=== PATIENT | female | born 1945 | race Caucasian/White ===

== ENCOUNTER 2017-06-03 23:42 | Inpatient (IN) | payer MEDICARE ==
[2017-06-04] MEDS ORDERED: Ondansetron HCl/PF 4 MG/2 ML Vial ONE (00:24)
[2017-06-04] MEDS ORDERED: cefTRIAXone\\ROCEPHIN 2 GM VIAL ONE (00:24)
[2017-06-04] MEDS ORDERED: Vancomycin HCl 1 GM in Premix Bag 1 BAG IVPB SCH (00:30)
[2017-06-04] MEDS ORDERED: GENTAMICIN SULFATE IVPB SCH (00:45)
[2017-06-04] MEDS ORDERED: SODIUM CHLORIDE 0.9% IVPB SCH (00:45)
[2017-06-04 00:46] LABS: #Eosinphils 0.1 thou/uL (0.0-0.7); #Lymphocytes 2.6 thou/uL (1.20-3.40); #Monocytes 0.7 thou/uL (0.11-0.59); #Neutrophils 11.2 thou/uL (1.40-6.50); %Basophils 0.2 % (0.0-1.0); %Eosinophils 0.4 % (0.0-10.0); %Lymphocytes 17.6 % (21.0-51.0); %Monocytes 4.6 % (0.0-10.0); Hematocrit 38.6 % (36.0-47.0); Mean Platelet Volume 8.9 fL (7.4-10.4); Red Blood Cell (RBC) Count 4.36 mill/uL (4.20-5.40); White Blood Cell (WBC) Count 14.6 thou/uL (4.8-10.8)
[2017-06-04 01:02] LABS: Lactic Acid - Sepsis 2.3 mmol/L (0.5-2.2)
[2017-06-04 01:13] LABS: Anion Gap 15 mmol/L (10-20); BUN (Urea Nitrogen) 19 mg/dL (9.8-20.1); Calc. Creatinine Clearance 0 mL/min (70-130); Calcium 9.2 mg/dL (7.8-10.44); Carbon Dioxide 20 mmol/L (23-31); Chloride 107 mmol/L (98-107); Estimated GFR-MDRD 72
[2017-06-04 01:52] LABS: Bilirubin Negative (Negative); Blood, Urine Negative (Negative); Glucose, Urine (Dipstick) Negative (Negative); Ketone, Urine Negative (Negative); Nitrite Negative (Negative); Protein, Urine (Dipstick) Negative (Neg-Trace); Urobilinogen 0.2 mg/dL (0.2-1.0)
[2017-06-04] MEDS ORDERED: Ondansetron HCl/PF 4 MG/2 ML Vial IVP PRN ×2 (02:10→02:56)
[2017-06-04] MEDS ORDERED: Sodium Chloride 0.9% 1,000 ML IV SCH (02:56)
[2017-06-04] MEDS ORDERED: Ondansetron ODT 4 MG TAB SL PRN (02:56)
[2017-06-04 03:16] VITALS: BMI 24.0
[2017-06-04] MEDS: Sodium Chloride 0.9% 1,000 ML IV SCH ×3 (03:49→16:19)
[2017-06-04 04:20] LABS: #Basophils 0.1 thou/uL (0.0-0.2); #Eosinphils 0.1 thou/uL (0.0-0.7); #Lymphocytes 2.7 thou/uL (1.20-3.40); #Monocytes 0.8 thou/uL (0.11-0.59); #Neutrophils 8.1 thou/uL (1.40-6.50); %Basophils 0.5 % (0.0-1.0); %Eosinophils 0.9 % (0.0-10.0); %Lymphocytes 22.9 % (21.0-51.0); Hematocrit 34.5 % (36.0-47.0); Mean Platelet Volume 8.3 fL (7.4-10.4); Red Blood Cell (RBC) Count 3.85 mill/uL (4.20-5.40); White Blood Cell (WBC) Count 11.8 thou/uL (4.8-10.8)
[2017-06-04 04:56] LABS: Anion Gap 12 mmol/L (10-20); BUN (Urea Nitrogen) 18 mg/dL (9.8-20.1); Calc. Creatinine Clearance 71 mL/min (70-130); Calcium 7.8 mg/dL (7.8-10.44); Carbon Dioxide 19 mmol/L (23-31); Chloride 111 mmol/L (98-107); Estimated GFR-MDRD 81
--- NOTE | 2017-06-04 04:57 | HP ---
DATE OF ADMISSION: 06/04/2017 CHIEF COMPLAINT: Abdominal pain. HISTORY OF PRESENT ILLNESS: The patient is a 71-year-old female with past medical history of hyperl ipidemia, asthma and hypothyroidism, now came to the ER complaining of abdominal pain. The patient came from outside ER. The patient started having abdominal pain all of sudden today, right-sided ab dominal pain, right flank region, radiating towards the right inguinal region, constant pain 10/10, associated with nausea also. Denies any fever, denies any chills. Pain persisted, so she went to [facility] outside ER. In the outside ER, patient was diagnosed of having kidney stone and ureteral stone a nd so patient was transferred here. The patient denies any chest pain, denies any trouble breathing , denies dizziness, denies lightheadedness. The pain improves with some pain some pain medication. PAST MEDICAL HISTORY: As per HPI. PAST SURGICAL HISTORY: Tonsillectomy, adenoidectomy. SOCIAL HISTORY: Denies smoking, denies alcohol, denies any drugs. FAMILY HISTORY: Denies any kidney problems. MEDICATIONS: Reviewed. REVIEW OF SYSTEMS: Constitutional: Denies any fever, denies any chills. Eyes: Denies any vision problems. Ears: Denies any hearing loss. Neck: Denies any neck pain. Cardiovascular system: De nies any chest pain, denies palpitations. Respiratory system: Denies any cough, denies sputum prod uction. Gastrointestinal system: Positive for nausea, vomiting. Musculoskeletal: Denies any join t deformities. Cranial nerve system: Denies syncope, denies lightheadedness. Genitourinary: Posi tive for right flank pain. Integumentary: Denies any rash. All other review of systems are review ed and are negative. PHYSICAL EXAMINATION: CONSTITUTIONAL/VITAL SIGNS: At the time of H\T\P performed, blood pressure is 140/70, afebrile, res piratory rate 18, pulse ox 97% on room air. GENERAL APPEARANCE: The patient appears comfortable, appears tired. HEENT: Anterior nares patent. Nose normal. Ears normal. Teeth intact. Tongue is moist. NECK: Supple. No JVD. CARDIOVASCULAR SYSTEM: S1, S2 present. Regular rate and rhythm, no murmurs, no rubs, no gallops. RESPIRATORY SYSTEM: No wheezing, no rhonchi. Breath sounds bilaterally. GASTROINTESTINAL: Abdomen is soft, nontender, no guarding, no organomegaly, no masses felt. MUSCULOSKELETAL: No edema. GENITOURINARY: No flank tenderness, no CVA tenderness. No suprapubic tenderness. INTEGUMENTARY: No obvious rashes seen. PSYCHIATRIC: Mood is appropriate at this time. LABORATORY AND IMAGING DATA: At the time of H\T\P performed, sodium 138, potassium 3.8, chloride 10 4, CO2 of 19, BUN 22, creatinine 0.7. White count 15.4, hemoglobin 12.6, platelet count 305. CT ab domen showed a right-sided hydroureteronephrosis, 1-2 mm distal ureteral stone, colonic diverticulos is. Lactic acid 2.8. ASSESSMENT AND PLAN: The patient is a 71-year-old female. 1. Right ureteral stone with right hydroureteronephrosis. Plan to consult Urology to evaluate the patient. Plan to keep patient n.p.o. Plan to start the patient on IV fluids and pain medications. Plan to start patient on Flomax 0.4 mg p.o. daily also. 2. Mild metabolic acidosis. Monitor bicarb level. Repeat BMP in a.m. 3. History of hyperlipidemia. Monitor, continue home medication. 4. History of asthma. P.r.n. breathing treatments. 5. History hypothyroidism. Continue home medications. The case was discussed in detail with the patient.
[2017-06-04] MEDS: Cefepime 2 GM in Sodium Chloride 0.9% 100 ML IVPB SCH ×2 (08:09→20:09)
[2017-06-04] MEDS: Tamsulosin HCl 0.4 MG CAP PO SCH ×2 (08:10→12:55)
[2017-06-04] MEDS: Heparin 5,000 UNITS/ML VIAL SC SCH ×3 (08:10→20:08)
--- NOTE | 2017-06-04 09:08 | CT ---
PRELIMINARY REPORT/[facility]/EMERGENCY AFTER HOURS PROCEDURE: EXAM: CT Abdomen and Pelvis Without Intravenous Contrast CLINICAL HISTORY: 71 years old, female; Pain; Abdominal pain; Flank; Right; Prior surgery; Patient HX: Pt C/O right fl ank pain. Pt denies nausea or vomiting. Pt had a scan at another facility where a stone was seen. TECHNIQUE: Axial computed tomography images of the abdomen and pelvis without intravenous contrast. Coronal reformatted images were created and reviewed. COMPARISON: No relevant prior studies available. FINDINGS: Lower thorax: No acute findings. ABDOMEN: Liver: Unremarkable. Gallbladder and bile ducts: Cholecystectomy. Pancreas: Unremarkable. Spleen: Normal. Adrenals: Normal. Kidneys and ureters: Excreted contrast within the kidneys and right ureter. 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 There is mild lower pole hydroureteronephrosis. It is uncertain if or where the u reters join, although some contrast is noted within the normal caliber upper pole ureter in the mid abdomen. On coronal reconstructions using bone windows there is a 2 mm hyperdensity which appears to be in the distal right ureter around the level of the UVJ. Mild right perinephric fat stranding. Unremarkable left kidney. Evaluation of the right ureter is partially limited by the excr eted contrast. Stomach and bowel: Unremarkable. No obstruction. Appendix: No findings to suggest acute appendicitis. PELVIS: Bladder: Decompressed by a Frias catheter. Excreted contrast in the urinary bladder. Reproductive: Unremarkable. ABDOMEN and PELVIS: Intraperitoneal space: No free air. No significant fluid collection. Bones/joints: Unremarkable. No acute fracture. Soft tissues: Unremarkable. Vasculature: Unremarkable. Lymph nodes: Unremarkable. No enlarged lymph nodes. 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 There may be ectopic insertion of the upper pole ureter. Thank you for allowing us to participate in the care of your patient. Dictated and Authenticated by: Irvin Paz MD 06/04/2017 7:45 AM Central Time ([place] \T\ [place]) FINAL REPORT CONTRAST ENHANCED CT IMAGES OF THE ABDOMEN AND PELVIS: 06/04/2017 TECHNIQUE: Axial images are obtained, including the dome of the diaphragm through the pubic symphysis. IV cont rast was given. FINDINGS: Some areas of atelectasis and scar are seen in both lung bases. No evidence of free intraperitoneal air is seen. The liver and spleen are unremarkable. The pancreas is unremarkable. The gallbladder has been surg ically removed. The adrenal glands are unremarkable. The left kidney is unremarkable. The right k idney demonstrates mild to moderate right-sided hydroureteronephrosis. The right ureter is dilated along its entire course. There may be a tiny, distal-most aspect right ureteral calculus, just abov e the right ureterovesicular junction. Whether contrast passes through this, I cannot determine on CT. There is contrast in the bladder and may be reaching the bladder from both ureters or only from the left ureter. Descending colonic diverticulosis is seen. There is some minimal fat stranding surrounding the right kidney. Multilevel lumbar degenerative changes are seen. Mild to moderate right-sided hydroureteronephrosis with obstructing distal right ureteral calculus. Whether this is resulting in high-grade or minimal obstruction, I cannot tell on CT. Findings discussed with Dr. Ayala at 7:46 p.m. on 06/04/2017. CODE CR POS: JOCELYNN
--- NOTE | 2017-06-04 14:05 | PDOC.EVN ---
Event Note - Event Note Event Note: Chart reviewed. Pt seen. Denies abdo pain. VSS. d/w Urology service, will follow pt.
--- NOTE | 2017-06-04 17:36 | CON ---
DATE OF CONSULTATION: 06/04/2017 PRIMARY CARE PHYSICIAN: Previously was Dr. Pope, patient is recently transitioned to a new PCP in [facility]. REASON FOR CONSULTATION: Right hydronephrosis secondary to distal ureteral stone 1-2 mm punctate. HISTORY OF PRESENT ILLNESS: Ms. Donovan is a pleasant 71-year-old female with history of hypertension, hyperlipidemia, presented with acute onset of right lower quadrant abdominal discomfort that began yesterday at 2:00 p.m. This was associated with bouts of nausea, vomiting. She denies history of gross hematuria, prior history of kidney stones, fever. Patient has received multiple antibiotic regimen in our emergency room including gentamicin, vancomycin and Rocephin. She received 2 mg of morphine at midnight last night. Subsequently, after 9 hours she has not required further pain medication. CT at an outside institution demonstrated mild right hydronephrosis, possible right duplicated collecting system with a distal punctate 1-2 mm ureteral stone just proximal to the UVJ. The left kidney is unremarkable. 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 There is one ureter distally which is confirmed on repeat CT scan obtained this morning at [facility]. Currently, she is resting comfortably. She denies change in mental status. Appears alert and oriented to herself. Workup at the other hospital including chest x-ray, CT of the head was unremarkable. Urine test from the initial ER demonstrated no significant bacteria, negative nitrite urine. The patient was transferred to [place] for higher level of care as there was concern regarding leukocytosis of 15. PAST MEDICAL HISTORY: She denies prior history of kidney disease, hypothyroidism, hyperlipidemia, arthritis, asthma. PAST SURGICAL HISTORY: Second toe amputation, thyroid surgery, left shoulder surgery, appendectomy, cholecystectomy, tonsillectomy, tubal ligation. PSYCHIATRIC HISTORY: Includes depression. SOCIAL HISTORY: Negative x3. She lives with her two granddaughters in a private residence. HOME MEDICATIONS: Include levothyroxine, meloxicam, Zoloft, Advair, Cymbalta. ALLERGIES: No known drug allergies. PHYSICAL EXAMINATION: VITAL SIGNS: Upon presentation to the emergency room, has been afebrile. Blood pressure, vital signs are stable with no evidence of hypotension or tachycardia. Currently, she is resting comfortably. Vital signs currently 97, 98, 18, 98%, 135/78. GENERAL: The patient appears to be in no acute distress. HEENT: Unremarkable. HEART: Regular rate. LUNGS: Clear. ABDOMEN: Soft, nontender, nondistended. There is no gross evidence of CVA tenderness. No rigidity, no rebound. GENITOURINARY: Demonstrates atrophic vaginitis, urethral Frias catheter placed by the initial ER demonstrates clear dilute urine. EXTREMITIES: No cyanosis, clubbing or edema. PERTINENT LABS: White count on presentation 14.6 with 77 segs. Lactic acid 2.3 this morning, repeat labs demonstrates decreased white blood count to 11.8, hemoglobin 11.3, 238 platelets. No evidence of left shift. Creatinine stable at 0.7. Lactic acid has decreased to 1.4 this morning. Urinalysis is grossly unremarkable. Culture pending. 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 CT of the head negative. Chest x-ray negative. CT of the abdomen and pelvis without contrast obtained at [place] this morning demonstrates bilateral symmetric uptake and excretion. 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 I did review the CT myself as well as with the radiologist, Dr. Ovalle. There is a persistent punctate 1-2 mm distal ureteral stone just proximal to the UVJ. Contrast is seen to the level of the stone. It is unclear if contrast is excreting distally or not, as the bladder is decompressed filled with contrast. IMPRESSION AND PLAN: Ms. Donovan is a 71-year-old female who was admitted for right distal 1-2 mm punctate renal lithiasis due to history of flank pain, currently resolved. Patient has not required pain medication for the last 9-10 hours. There is persistent punctate stone nidus on CT scan this morning. Clinically, I do recommend observation with pain medication, continue IV fluids at 120 mL hours, strain urine. Broad spectrum antibiotic therapy with cefepime may be continued. Agree with Flomax. Statistically given location, size of the stone, the patient has high probability that this will pass with medical expulsion therapy. The patient is nontoxic appearing with resolution of leukocytosis, normalization of lactic acid. The patient may resume her diet, will obtain followup renal ultrasound, KUB tomorrow morning. The case was discussed with hospitalist, daughter. Informed regarding clinical status. We will follow along with you. SHRADDHA
[2017-06-04] MEDS ORDERED: Meloxicam 7.5 MG TAB PO PRN (23:29)
[2017-06-04] MEDS ORDERED: Acetaminophen 325 MG TAB PO PRN (23:29)
[2017-06-05] MEDS: Sodium Chloride 0.9% 1,000 ML IV SCH ×3 (00:14→19:15)
[2017-06-05] MEDS: Vancomycin HCl 750 MG in Sodium Chloride 0.9% 250 ML 250 ML IVPB SCH ×3 (00:14→23:39)
[2017-06-05] MEDS ORDERED: Chloraseptic Spray 180 ml Bottle PO PRN (07:04)
[2017-06-05] MEDS ORDERED: Senokot 8.6 MG TAB PO PRN (07:04)
[2017-06-05] MEDS ORDERED: HYDROcodone/Acetaminophen 5/325 mg Tablet PO PRN (07:04)
[2017-06-05] MEDS ORDERED: Mag-Al 1200 mg/1200 mg/30 ML UDCUP PO PRN (07:04)
[2017-06-05] MEDS ORDERED: Loratadine 10 MG TAB PO PRN (07:04)
[2017-06-05] MEDS ORDERED: Morphine Sulfate 2 MG/ML SYRINGE SLOW IVP PRN (07:04)
[2017-06-05] MEDS ORDERED: Diabetic Tussin 200 MG/10 ML UDCUP PO PRN (07:04)
[2017-06-05] MEDS ORDERED: Artificial Tears 18 DROP/0.9 ML EA EYE PRN (07:04)
[2017-06-05] MEDS ORDERED: Loperamide HCl 2 MG CAP PO PRN (07:04)
[2017-06-05] MEDS ORDERED: Milk Of Magnesia 30 ML UDCUP PO PRN (07:04)
[2017-06-05] MEDS ORDERED: Zolpidem Tartrate 5 MG TAB PO PRN (07:04)
[2017-06-05] MEDS ORDERED: Sodium Chloride 0.65% Nasal 44 ML BOT EA NARE PRN (07:04)
[2017-06-05] MEDS ORDERED: Ondansetron ODT 4 MG TAB PO PRN (07:04)
[2017-06-05] MEDS ORDERED: Eucerin (Mineral Oil/Petrolatum,White) 30 gm Jar TOP PRN (07:04)
[2017-06-05 07:48] LABS: #Eosinphils 0.2 thou/uL (0.0-0.7); #Lymphocytes 1.9 thou/uL (1.20-3.40); #Monocytes 0.8 thou/uL (0.11-0.59); #Neutrophils 8.4 thou/uL (1.40-6.50); %Basophils 0.1 % (0.0-1.0); %Eosinophils 2.1 % (0.0-10.0); %Lymphocytes 16.7 % (21.0-51.0); %Monocytes 7.2 % (0.0-10.0); Hematocrit 38.5 % (36.0-47.0); Mean Platelet Volume 8.5 fL (7.4-10.4); White Blood Cell (WBC) Count 11.4 thou/uL (4.8-10.8)
[2017-06-05] MEDS ORDERED: Iothalamate Meglumine 60% 50 ML VIAL FS ONE (07:56)
--- NOTE | 2017-06-05 08:11 | RAD ---
AP VIEW ABDOMEN: HISTORY: Patient recent renal calculus. FINDINGS: AP abdomen is obtained. A moderate amount of stool is seen in the colon. Surgical clips are seen i n the gallbladder fossa. Numerous pelvic phleboliths seen. The possible tiny distal right ureteral calculus definitively is not visible; however, it is difficult to find its exact position due to it s tiny size. Previously noted contrast in the lower pole of the right kidney has passed. No residu al hydronephrosis or residual contrast is seen. I suspect that the stone is partially or nonobstruc ting and the contrast does clear the right kidney as no residual contrast is seen. IMPRESSION: No definite evidence of right-sided hydronephrosis is seen. POS: JOCELYNN
--- NOTE | 2017-06-05 08:13 | ULT ---
RENAL ULTRASOUND: DATE: 06/05/17. FINDINGS: Multiple longitudinal and transverse images of the kidneys and bladder are obtained using a multiher tz curvilinear transducer. Real-time images obtained. The bladder is decompressed and, therefore, could not be commented upon. Both kidneys are visualized. Right kidney measures 12.5 and the left kidney 12.1 cm from pole to pole. There appears to be duplicated system in the lower pole of the ri ght kidney. No definite evidence of lower pole hydronephrosis is seen. The left kidney is unremark able. IMPRESSION: No definite evidence of hydronephrosis is seen. POS: [facility]
[2017-06-05 08:17] LABS: Anion Gap 13 mmol/L (10-20); BUN (Urea Nitrogen) 13 mg/dL (9.8-20.1); Calc. Creatinine Clearance 69 mL/min (70-130); Calcium 8.9 mg/dL (7.8-10.44); Carbon Dioxide 22 mmol/L (23-31); Chloride 110 mmol/L (98-107); Estimated GFR-MDRD 78
[2017-06-05] MEDS: Cefepime 2 GM in Sodium Chloride 0.9% 100 ML IVPB SCH ×2 (08:29→21:40)
[2017-06-05] MEDS: CeleCOXIB 100 MG CAP PO SCH ×3 (08:34→21:15)
[2017-06-05] MEDS: Famotidine 20 MG TAB PO SCH ×3 (08:34→21:41)
[2017-06-05] MEDS: Heparin 5,000 UNITS/ML VIAL SC SCH ×3 (08:34→21:15)
[2017-06-05] MEDS: Tamsulosin HCl 0.4 MG CAP PO SCH ×2 (08:37→15:20)
[2017-06-05] MEDS ORDERED: Fentanyl 100 MCG/2 ML VIAL ONE (09:35)
[2017-06-05] MEDS ORDERED: Morphine Sulfate 2 MG/ML SYRINGE ONE (09:42)
--- NOTE | 2017-06-05 10:05 | PDOC.PN ---
- Subjective Encounter Start Date: 06/05/17 Encounter Start Time: 08:00 -: old records requested/rev last night and this morning pt has similar pain which brought her in hospital, no fever - Objective Resuscitation Status: Resuscitation Status FULL:Full Resuscitation MAR Reviewed: Yes Vital Signs & Weight: Vital Signs (12 hours) Temp Pulse Resp BP Pulse Ox 06/05/17 08:03 98.2 F 72 20 141/77 H 96 06/05/17 04:00 97.7 F 91 18 164/89 H 94 L 06/05/17 00:00 99.6 F 102 H 18 132/76 94 L Weight Weight 139 lb 15.896 oz I&O: 06/04/17 06/05/17 06/06/17 06:59 06:59 06:59 Intake Total 3780 Output Total 5450 Balance -1670 Result Diagrams: 06/05/17 07:36 06/05/17 07:36 Radiology Reviewed by me: Yes (renal US, xray abdomen and CT abdo) Phys Exam - Physical Examination Constitutional: NAD HEENT: PERRLA, moist MMs, sclera anicteric Neck: no JVD, supple Respiratory: no wheezing, no rales, no rhonchi Cardiovascular: RRR, no significant murmur, no rub Gastrointestinal: soft, non-tender, no distention, positive bowel sounds Musculoskeletal: no edema, pulses present Neurological: non-focal, normal sensation, moves all 4 limbs Lymphatic: no nodes Psychiatric: normal affect, A&O x 3 Skin: no rash, normal turgor Dx/Plan (1) Hydronephrosis, right Code(s): N13.30 - UNSPECIFIED HYDRONEPHROSIS Status: Acute (2) Lactic acidosis Code(s): E87.2 - ACIDOSIS Status: Acute (3) Ureteral calculus, right Code(s): N20.1 - CALCULUS OF URETER Status: Acute (4) Ureteric colic Code(s): N23 - UNSPECIFIED RENAL COLIC Status: Acute (5) Anxiety and depression Code(s): F41.8 - OTHER SPECIFIED ANXIETY DISORDERS Status: Chronic (6) Asthma Code(s): J45.909 - UNSPECIFIED ASTHMA, UNCOMPLICATED Status: Chronic (7) Hypothyroidism Code(s): E03.9 - HYPOTHYROIDISM, UNSPECIFIED Status: Chronic - Plan cont current plan of care, continue antibiotics * positive blood culture is likely contaminant * today pt is planned for cysto and stent placement * medication reviewed as below * symptomatic treatment. * continue empiric cefepime and vancomycin * pain control * will monitor in hospital. Review of Systems - Review of Systems Constitutional: negative: Fever, Chills, Sweats, Weakness, Malaise, Other Eyes: negative: Pain, Vision Change, Conjunctivae Inflammation, Eyelid Inflammation, Redness, Other ENT: negative: Ear Pain, Ear Discharge, Nose Pain, Nose Discharge, Nose Congestion, Mouth Pain, Mouth Swelling, Throat Pain, Throat Swelling, Other Respiratory: negative: Cough, Dry, Shortness of Breath, Hemoptysis, SOB with Excertion, Pleuritic Pain, Sputum, Wheezing Cardiovascular: negative: Chest Pain, Palpitations, Orthopnea, Paroxysmal Noc. Dyspnea, Edema, Light Headedness, Other Gastrointestinal: Abdominal Pain. negative: Nausea, Vomiting, Diarrhea, Constipation, Melena, Hematochezia, Other Genitourinary: negative: Dysuria, Frequency, Incontinence, Hematuria, Retention , Other Musculoskeletal: negative: Neck Pain, Shoulder Pain, Arm Pain, Back Pain, Hand Pain, Leg Pain, Foot Pain, Other - Medications/Allergies Allergies/Adverse Reactions: Allergies Allergy/AdvReac Type Severity Reaction Status Date / Time No Known Drug Allergies Allergy Unverified 06/04/17 00:29 Medications: Current Medications Acetaminophen (Tylenol) 650 mg PO Q6H PRN PRN Reason: Headache/Fever or Pain Last Admin: 06/05/17 00:43 Dose: 650 mg Hydrocodone Bitart/Acetaminophen ([place] 5/325) 1 tab PO Q4H PRN PRN Reason: Moderate Pain (4-6) Al Hydroxide/Mg Hydroxide (Maalox) 15 ml PO Q4H PRN PRN Reason: Heartburn or Indigestion Albuterol/Ipratropium (Duoneb) 3 ml NEB NOW [facility] Stop: 06/05/17 11:30 Albuterol/Ipratropium (Duoneb) 3 ml NEB [id number] [facility] Artificial Tears (Tears Naturale) 0 drop EA EYE PRN PRN PRN Reason: Dry Eyes Celecoxib (Celebrex) 100 mg PO BID [facility] Last Admin: 06/05/17 08:34 Dose: Not Given Famotidine (Pepcid) 20 mg PO BID [facility] Last Admin: 06/05/17 08:34 Dose: Not Given Guaifenesin (Robitussin Sf) 200 mg PO Q4H PRN PRN Reason: Cough Heparin Sodium (Porcine) (Heparin) 5,000 units SC TID [facility] Last Admin: 06/05/17 08:34 Dose: Not Given Hydralazine HCl (Apresoline) 10 mg SLOW IVP Q4H PRN PRN Reason: Systolic BP > 180 Cefepime HCl 2 gm/ Sodium (Chloride) 100 mls @ 200 mls/hr IVPB Q12HR [facility] Last Admin: 06/05/17 08:29 Dose: 100 mls Sodium Chloride (Normal Saline 0.9%) 1,000 mls @ 100 mls/hr IV .Q10H [facility] Last Admin: 06/05/17 08:27 Dose: 1,000 mls Vancomycin HCl 750 mg/ Sodium (Chloride) 250 mls @ 250 mls/hr IVPB 1200,2359 [facility] Last Admin: 06/05/17 00:14 Dose: 250 mls Loperamide HCl (Imodium) 2 mg PO PRN PRN PRN Reason: Diarrhea/Loose Stools Loratadine (Claritin) 10 mg PO DAILYPRN PRN PRN Reason: Sinus Symptoms Magnesium Hydroxide (Milk Of Magnesium) 30 ml PO DAILYPRN PRN PRN Reason: Constipation Meloxicam (Mobic) 7.5 mg PO DAILYPRN PRN PRN Reason: Pain Mineral Oil/White Petrolatum (Eucerin Cream) 0 gm TOP BIDPRN PRN PRN Reason: Dry Skin Miscellaneous Medication (Pharmacy To Dose) 1 each IVPB PRN PRN PRN Reason: Pharmacy to dose Mometasone Furoate/Formoterol Fumar (Dulera 200 Mcg/5 Mcg Inhaler) 2 puff INH BID-RT [facility] Morphine Sulfate (Morphine Sulfate) 2 mg SLOW IVP Q4H PRN PRN Reason: Pain Ondansetron HCl (Zofran) 4 mg IVP Q6H PRN PRN Reason: Nausea/Vomiting Last Admin: 06/05/17 06:33 Dose: 4 mg Ondansetron HCl (Zofran Odt) 4 mg PO Q6H PRN PRN Reason: Nausea/Vomiting Phenol (Chloraseptic [place] 180 Ml Bot) 0 ml PO PRN PRN PRN Reason: Sore Throat Senna (Senokot) 2 tab PO HSPRN PRN PRN Reason: Constipation Sodium Chloride (Flush - Normal Saline) 10 ml IVF Q12HR [facility] Last Admin: 06/05/17 08:37 Dose: Not Given Sodium Chloride (Flush - Normal Saline) 10 ml IVF PRN PRN PRN Reason: Saline Flush Sodium Chloride (Manuel Garcia Nasal [place] 0.65%) 0 ml EA NARE QIDPRN PRN PRN Reason: Nasal Congestion Tamsulosin HCl (Flomax) 0.4 mg PO DAILY [facility] Last Admin: 06/05/17 08:37 Dose: Not Given Zolpidem Tartrate (Ambien) 5 mg PO HSPRN PRN PRN Reason: Insomnia
--- NOTE | 2017-06-05 10:58 | PRG ---
DATE OF SERVICE: 06/05/2017 SUBJECTIVE: The patient states that she had acute recurrent discomfort in the right lower quadrant this morning. Desires to proceed with surgery. PHYSICAL EXAMINATION: VITAL SIGNS: Stable, 98.2, 72, 20, 96, and 141/77. ABDOMEN: Soft. Subjective discomfort in the right lower quadrant. I's and O' s are 3780 in and 5450 out. PERTINENT LABORATORY DATA: White count 11.4, hemoglobin 12, and platelets 225, creatinine stable at 0.7. UA is negative, urine culture preliminary negative. Blood culture demonstrates Staph coag negative, consistent with skin contaminant. Renal ultrasound this a.m.: No definite hydronephrosis KUB no evidence of retained IV contrast IMPRESSION AND PLAN: Ms. 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 She was advised regarding medical expulsion therapy. This morning, she had acute discomfort and desires to proceed with surgery. Informed patient regarding options of ongoing observation for medical expulsion therapy as the stone is quite small. The renal ultrasound done this morning demonstrates no definitive hydronephrosis ; KUB is inconclusive as the stone is small with no obvious retained contrast from prior CT scan 48 hours ago. I discussed with the patient again regarding observation as imaging this morning is reassuring. She desired to proceed will attempt an ureteroscopy, basket extraction, given the small stone nidus; however, possible staged intervention was discussed with patient if significant edema or unable to engage the stone. The case was also discussed with her daughter per patient's request. Risks and complications and indications reviewed with patient and family in detail and they desired to proceed. Addendum: Upon preop in patient this morning, patient extremely anxious to proceed with surgical intervention. I informed the patient that this is not an urgent matter, surgery was consider this morning as she had recurrent right lower quadrant abdominal pain. This subsequently resolved on its own not requiring pain medication. As such I did perform an IVP subsequently. IVP component demonstrates bilateral bifid ureters, with no evidence of obstruction bilaterally. Patient reassured that she most likely passed a stone, recommend observation. If patient has no significant pain component the next 24 hours, recommend discharge home tomorrow afternoon. [facility]RIC CENTERMelanie
--- NOTE | 2017-06-05 15:23 | RAD ---
IVP: Date: 06-05-17 History: Right ureteral calculus. FINDINGS: Adjunct [employer] Faculty Member radiograph demonstrates surgical clips seen in the gallbladder fossa. Numerous calcifications are seen in the pelvis, most compatible with pelvic phleboliths. The patient received 100 cc of Isovue 300 intravenously. Overhead images obtained. There is a partially duplicated right collecting system. The upper and lower pole collecting systems appear to join just to the right of the L5 vertebral level. The lower pole collecting system is mil dly dilated. There is no evidence of significant cortical degree of enhancement or significant diffe rence in contrast density between the upper and lower poles. This suggests free flow of contrast dis tally. The right ureter is seen all the way to the bladder. No evidence of obstructive lesion seen. The left kidney demonstrates what appears to be also a duplicated system in the upper and lower pole s. The left ureters appear to be separate. The distal aspect, however, is not visualized. No evidenc e of left sided hydronephrosis seen. The bladder is unremarkable. IMPRESSION: 1. Bilaterally, at least partially duplicated renal collecting systems. There is mild lower pole dil atation on the right, however, no evidence of obstruction seen. POS: JOCELYNN
[2017-06-05] MEDS ORDERED: Iopamidol 300 61% 100 ML VIAL FS ONE (16:48)
[2017-06-05] MEDS: Mometasone/Formoterol 120 PUFF INHALER INH SCH (18:38)
[2017-06-06] MEDS: Mometasone/Formoterol 120 PUFF INHALER INH SCH (05:53)
[2017-06-06] MEDS: Sodium Chloride 0.9% 1,000 ML IV SCH (06:18)
--- NOTE | 2017-06-06 07:57 | PRG ---
DATE OF SERVICE: 06/06/2017 SUBJECTIVE: The patient without complaints, agreeable for discharge today. The patient has not req uired pain medication for more than 48 hours since admission. PHYSICAL EXAMINATION: VITAL SIGNS: Stable. ABDOMEN: Soft, nontender, nondistended. Has had bowel movement yesterday. PERTINENT LABORATORY AND IMAGIN. Creatinine stable at 0.73. 2. Urine culture negative. 3. Blood culture 1 out of 2 demonstrated coag negative Staph consistent with a skin contaminant. 4. Renal ultrasound that was obtained yesterday demonstrates no significant hydronephrosis. KUB de monstrates no retained contrast. 5. Follow up IVP demonstrates no significant obstructive component bilaterally, no significant hydr onephrosis consistent with obstruction. 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 IMPRESSION AND PLAN: Ms. Donovan is a 71-year-old female who was transferred from [place] due to elevated white count with right flank pain. CT demonstrated punctate 1-2 mm distal UVJ stone. She has not required pain medication since admission, IVP demonstrates an incidental bifid ureter with no functional obstruction. Advised the patient that she most likely has passed her punctate renal l ithiasis as she has no pain over the last 48 hours since admission. She was contemplating diagnosti c surgery yesterday. She had 1 episode of recurrent pain did not require pain medication. She has significant anxiety over proceeding with surgery. As such, follow up IVP was obtained confirming no functional obstruction. She still feels comfortable being discharged home today. Recommend ciprof loxacin 500 mg 1 p.o. b.i.d. x7 days. The patient states that she is considering retaining a urolog ist near her home in [place]. She is given an elective follow up with me 07/12/2017 at 11:15 a.m. If she desires to cancel her appointment with me, courtesy call to my office advised regarding can cellation. Informed the patient that I would be happy to see her if she desires to pursue her care with me.
[2017-06-06] MEDS: Cefepime 2 GM in Sodium Chloride 0.9% 100 ML IVPB SCH (08:21)
[2017-06-06] MEDS: Tamsulosin HCl 0.4 MG CAP PO SCH (08:25)
[2017-06-06] MEDS: CeleCOXIB 100 MG CAP PO SCH (08:25)
[2017-06-06] MEDS: Famotidine 20 MG TAB PO SCH (08:25)
[2017-06-06] MEDS: Heparin 5,000 UNITS/ML VIAL SC SCH (08:26)
--- NOTE | 2017-06-06 11:02 | PDOC.PN ---
- Subjective Encounter Start Date: 06/06/17 Encounter Start Time: 07:15 Patient seen and examined. No new complaints. No overnight events - Objective Resuscitation Status: Resuscitation Status FULL:Full Resuscitation MAR Reviewed: Yes Vital Signs & Weight: Vital Signs (12 hours) Temp Pulse Resp BP Pulse Ox 06/06/17 08:04 97.6 F 93 18 141/81 H 97 06/06/17 05:53 73 16 97 06/06/17 05:52 73 16 97 06/06/17 05:00 97.8 F 73 18 136/76 97 06/06/17 01:21 82 12 96 Weight Weight 139 lb 15.896 oz I&O: 06/05/17 06/06/17 06/07/17 06:59 06:59 06:59 Intake Total 3780 3580 Output Total 5450 3750 Balance -1670 -170 Result Diagrams: 06/05/17 07:36 06/05/17 07:36 Phys Exam - Physical Examination Constitutional: NAD HEENT: PERRLA, moist MMs, sclera anicteric Neck: no JVD, supple Respiratory: no wheezing, no rales, no rhonchi Cardiovascular: RRR, no significant murmur, no rub Gastrointestinal: soft, non-tender, no distention, positive bowel sounds Musculoskeletal: no edema, pulses present Neurological: non-focal, normal sensation Psychiatric: normal affect, A&O x 3 Skin: no rash, normal turgor Dx/Plan (1) Hydronephrosis, right Code(s): N13.30 - UNSPECIFIED HYDRONEPHROSIS Status: Acute (2) Lactic acidosis Code(s): E87.2 - ACIDOSIS Status: Acute (3) Ureteral calculus, right Code(s): N20.1 - CALCULUS OF URETER Status: Acute (4) Ureteric colic Code(s): N23 - UNSPECIFIED RENAL COLIC Status: Acute (5) Anxiety and depression Code(s): F41.8 - OTHER SPECIFIED ANXIETY DISORDERS Status: Chronic (6) Asthma Code(s): J45.909 - UNSPECIFIED ASTHMA, UNCOMPLICATED Status: Chronic (7) Hypothyroidism Code(s): E03.9 - HYPOTHYROIDISM, UNSPECIFIED Status: Chronic - Plan cont current plan of care, continue antibiotics * medication reviewed as below * symptomatic treatment. * see discharge summery * medically stable.. Review of Systems - Review of Systems ENT: negative: Ear Pain, Ear Discharge, Nose Pain, Nose Discharge, Nose Congestion, Mouth Pain, Mouth Swelling, Throat Pain, Throat Swelling, Other Respiratory: negative: Cough, Dry, Shortness of Breath, Hemoptysis, SOB with Excertion, Pleuritic Pain, Sputum, Wheezing Cardiovascular: negative: Chest Pain, Palpitations, Orthopnea, Paroxysmal Noc. Dyspnea, Edema, Light Headedness, Other Gastrointestinal: negative: Nausea, Vomiting, Abdominal Pain, Diarrhea, Constipation, Melena, Hematochezia, Other Genitourinary: negative: Dysuria, Frequency, Incontinence, Hematuria, Retention , Other - Medications/Allergies Allergies/Adverse Reactions: Allergies Allergy/AdvReac Type Severity Reaction Status Date / Time No Known Drug Allergies Allergy Unverified 06/04/17 00:29 Medications: Current Medications Acetaminophen (Tylenol) 650 mg PO Q6H PRN PRN Reason: Headache/Fever or Pain Last Admin: 06/05/17 00:43 Dose: 650 mg Hydrocodone Bitart/Acetaminophen ([place] 5/325) 1 tab PO Q4H PRN PRN Reason: Moderate Pain (4-6) Al Hydroxide/Mg Hydroxide (Maalox) 15 ml PO Q4H PRN PRN Reason: Heartburn or Indigestion Albuterol/Ipratropium (Duoneb) 3 ml NEB [id number] [facility] Last Admin: 06/06/17 05:52 Dose: 3 ml Artificial Tears (Tears Naturale) 0 drop EA EYE PRN PRN PRN Reason: Dry Eyes Celecoxib (Celebrex) 100 mg PO BID [facility] Last Admin: 06/06/17 08:25 Dose: 100 mg Famotidine (Pepcid) 20 mg PO BID [facility] Last Admin: 06/06/17 08:25 Dose: 20 mg Guaifenesin (Robitussin Sf) 200 mg PO Q4H PRN PRN Reason: Cough Heparin Sodium (Porcine) (Heparin) 5,000 units SC TID [facility] Last Admin: 06/06/17 08:26 Dose: Not Given Hydralazine HCl (Apresoline) 10 mg SLOW IVP Q4H PRN PRN Reason: Systolic BP > 180 Cefepime HCl 2 gm/ Sodium (Chloride) 100 mls @ 200 mls/hr IVPB Q12HR [facility] Last Admin: 06/06/17 08:21 Dose: 100 mls Sodium Chloride (Normal Saline 0.9%) 1,000 mls @ 100 mls/hr IV .Q10H [facility] Last Admin: 06/06/17 06:18 Dose: Not Given Loperamide HCl (Imodium) 2 mg PO PRN PRN PRN Reason: Diarrhea/Loose Stools Loratadine (Claritin) 10 mg PO DAILYPRN PRN PRN Reason: Sinus Symptoms Last Admin: 06/05/17 21:19 Dose: 10 mg Magnesium Hydroxide (Milk Of Magnesium) 30 ml PO DAILYPRN PRN PRN Reason: Constipation Meloxicam (Mobic) 7.5 mg PO DAILYPRN PRN PRN Reason: Pain Mineral Oil/White Petrolatum (Eucerin Cream) 0 gm TOP BIDPRN PRN PRN Reason: Dry Skin Mometasone Furoate/Formoterol Fumar (Dulera 200 Mcg/5 Mcg Inhaler) 2 puff INH BID-RT [facility] Last Admin: 06/06/17 05:53 Dose: 2 puff Morphine Sulfate (Morphine Sulfate) 2 mg SLOW IVP Q4H PRN PRN Reason: Pain Ondansetron HCl (Zofran) 4 mg IVP Q6H PRN PRN Reason: Nausea/Vomiting Last Admin: 06/05/17 06:33 Dose: 4 mg Ondansetron HCl (Zofran Odt) 4 mg PO Q6H PRN PRN Reason: Nausea/Vomiting Phenol (Chloraseptic [place] 180 Ml Bot) 0 ml PO PRN PRN PRN Reason: Sore Throat Senna (Senokot) 2 tab PO HSPRN PRN PRN Reason: Constipation Sodium Chloride (Flush - Normal Saline) 10 ml IVF Q12HR [facility] Last Admin: 06/06/17 08:25 Dose: Not Given Sodium Chloride (Flush - Normal Saline) 10 ml IVF PRN PRN PRN Reason: Saline Flush Sodium Chloride ([place] Nasal [place] 0.65%) 0 ml EA NARE QIDPRN PRN PRN Reason: Nasal Congestion Tamsulosin HCl (Flomax) 0.4 mg PO DAILY [facility] Last Admin: 06/06/17 08:25 Dose: 0.4 mg Zolpidem Tartrate (Ambien) 5 mg PO HSPRN PRN PRN Reason: Insomnia
[2017-06-06 11:22] VITALS: BP 144/82; TEMP 97.5
--- NOTE | 2017-06-06 12:49 | DIS ---
DATE OF ADMISSION: 06/04/2017 DATE OF DISCHARGE: 06/06/2017 PRIMARY CARE PHYSICIAN: [facility] call admission. DISCHARGE DISPOSITION: Home. PRIMARY DISCHARGE DIAGNOSES: 1. Right hydronephrosis, resolved. 2. Lactic acidosis, improved. 3. Right ureteral calculi spontaneously passed. 4. Ureteric colic. SECONDARY DISCHARGE DIAGNOSES: Anxiety, depression, asthma, and hypothyroidism. PRIMARY PROCEDURE/OPERATION: None. RADIOLOGICAL INVESTIGATION: CT of the abdomen and pelvis, renal ultrasound, and intravenous pyelogr am. SIGNIFICANT LABORATORY DATA: Hemoglobin 12.5, creatinine 0.73. Urinalysis normal. Urine culture n egative. Blood culture negative. DISCHARGE MEDICATIONS: The patient will continue all her previous medicationS. The only new medica tions we prescribed are Cipro 500 mg p.o. b.i.d. for 7 days and Flomax 0.4 mg p.o. daily for 7 days. CONTRAINDICATIONS: None. CODE STATUS: FULL CODE. INPATIENT DIRECTOR OF PURCHASING: Dr. Ayala. TEST RESULTS PENDING ON DISCHARGE: None. ALLERGIES: No known drug allergies. DISCHARGE PLAN: Post hospital, the patient will follow up with primary care physician and Dr. Amina armenta on 07/12/2017 at 11:15 a.m. HOSPITAL COURSE: A 71-year-old female who was admitted by Dr. Solis. Please see his H\T\P for f urther details. The patient was presented with acute ureteric colic. In the emergency room, CT of the abdomen and pelvis showed distal ureteral calculus. The patient had improvement in her pain spo ntaneously. She has passed spontaneously stone. The patient was kept having recurrent pain during night time and that is why next day, Dr. Ayala decided to cystoscopy, but patient refused and her pain completely subsided as well. When we did retrograde pyelogram, we found that she did not h ave any further stone. At this point, hydronephrosis improved. Renal ultrasound is normal. Abdome n x-ray shows that stone has passed. On discharge, we prescribed Cipro for 7 days. She will follow up with Dr. Ayala if needed. She wants to prefer with Urology in [place]. The patient is seen and examined at bedside today. Please see my progress note from today for furth er details.
== END 2017-06-06 11:25 | disposition home or self-care (01) | DRG 694 ==
LOC: ERS 23:42 → T4-A 06-04 01:36
PROVIDERS: ADMIT Internal Medicine; ATTEND Internal Medicine
DX: N13.2 Hydronephrosis with renal and ureteral calculous obstruction (principal); E87.2 Acidosis; F41.9 Anxiety disorder, unspecified; Z53.29 Procedure and treatment not carried out because of patient's decision for other reasons; F32.9 Major depressive disorder, single episode, unspecified; J45.909 Unspecified asthma, uncomplicated; E03.9 Hypothyroidism, unspecified; Q62.8 Other congenital malformations of ureter; E78.5 Hyperlipidemia, unspecified
CPT/HCPCS: 36415; 74000; 74176; 74410; 76770; 80048; 81003; 83605; 85025; 87040; 87086; 87149; 94640; 96361; 96365; 96367; 96375; A4216; J0692; J0696; J1580; J1644; J2270; J2405; J3010; J3370; J7050; J7620; Q9961

== ENCOUNTER 2018-05-02 20:37 | Inpatient (IN) | payer MEDICARE ==
[2018-05-02] MEDS ORDERED: Acetaminophen 500 MG TAB ONE (21:09)
--- NOTE | 2018-05-02 21:38 | RAD ---
CHEST ONE VIEW: 05/02/18 HISTORY: Fever. Altered mental status. COMPARISON: None. FINDINGS: Atherosclerosis of the aorta. Normal cardiac silhouette. The pulmonary vessels and hilum are normal. No mass. No consolidation. No pneumothorax. There are degenerative changes in the left shoulder, inco mpletely evaluated. IMPRESSION: 1. No acute cardiopulmonary process. 2. Atherosclerosis. 3. Degenerative changes of the left shoulder, incompletely evaluated. Dedicated left shoulder ra diograph series can be performed nonemergently. POS: [facility]
[2018-05-02 21:47] LABS: Actual Bicarbonate (HCO3a) 18.9 mEq/L (22-28); CO2 Tension 23.2 mmHg (35.0-45.0); O2 Tension (PaO2) 81.9 mmHg (> 70.0); pH, Arterial 7.53 (7.35-7.45)
[2018-05-02 21:48] LABS: Analyzer IN Cardio ER; Calcium, Ionized 1.1 mmol/L (1.12-1.30); Potassium - ABG Lab 3.2 mmol/L (3.70-5.30); Puncture Site LRA
[2018-05-02 21:58] LABS: Bilirubin Negative (Negative); Blood, Urine Negative (Negative); Clarity CLEAR (Clear); Glucose, Urine (Dipstick) Negative (Negative); Leukocyte Negative (Negative); Nitrite Negative (Negative); Protein, Urine (Dipstick) Negative (Neg-Trace); Specific Gravity, Urine 1.016 (1.002-1.036); Urobilinogen 0.2 mg/dL (0.2-1.0)
[2018-05-02 22:09] LABS: Cocaine Metabolite Screen Not Detected (NotDetected); Medtox Reader # READER 1; Methamphetamine Not Detected (NotDetected); Opiate Screen Not Detected (NotDetected); Phencyclidine (PCP) Not Detected (NotDetected); THC/Cannabinoid Screen Not Detected (NotDetected)
[2018-05-02 22:10] LABS: Amphetamine Not Detected (NotDetected); Barbiturates Screen Not Detected (NotDetected); Benzodiazepine Screen Not Detected (NotDetected); Medtox Control Line Valid? VALID (VALID); Methadone Not Detected (NotDetected); Oxycodone Screen Not Detected (NotDetected); Tricyclic Screen Not Detected (NotDetected)
[2018-05-02 22:11] LABS: #Eosinphils 0.1 thou/uL (0.0-0.7); #Lymphocytes 0.9 thou/uL (1.20-3.40); #Monocytes 0.7 thou/uL (0.11-0.59); #Neutrophils 11.3 thou/uL (1.40-6.50); %Basophils 0.2 % (0.0-1.0); %Eosinophils 0.5 % (0.0-10.0); %Lymphocytes 6.8 % (21.0-51.0); %Monocytes 5.6 % (0.0-10.0); %Neutrophils 86.9 % (42.0-75.0); Hemoglobin 11.9 g/dL (12.0-16.0); Mean Corpuscular HGB CONC 33.6 g/dL (32.0-36.0); Mean Corpuscular Volume 86.3 fL (78.0-98.0); Platelet Count 174 thou/uL (130-400); RBC Distribution Width 11.1 % (11.5-14.5); Red Blood Cell (RBC) Count 4.12 mill/uL (4.20-5.40); White Blood Cell (WBC) Count 13.1 thou/uL (4.8-10.8)
[2018-05-02 22:34] LABS: Alcohol Less than 10 mg/dL (Less than 10); Salicylate Less than 8.0 mg/dL (15.0-30.0)
[2018-05-02 22:36] LABS: ALT (SGPT) 15 U/L (8-55); AST (SGOT) 19 U/L (5-34); Albumin 3.8 g/dL (3.4-4.8); Alkaline Phosphatase 91 U/L (40-150); Anion Gap 12 mmol/L (10-20); BUN (Urea Nitrogen) 21 mg/dL (9.8-20.1); Bilirubin, Total 0.7 mg/dL (0.2-1.2); CK (CPK) 161 U/L (29-168); Calc. Creatinine Clearance 0 mL/min (70-130); Calcium 8.3 mg/dL (7.8-10.44); Carbon Dioxide 21 mmol/L (23-31); Chloride 106 mmol/L (98-107); Estimated GFR-MDRD 89; Globulin 2.5 g/dL (2.4-3.5); Glucose 115 mg/dL (83-110); Lipase 14 U/L (8-78); Potassium 3.3 mmol/L (3.5-5.1); Protein, Total 6.3 g/dL (6.0-8.3); Sodium 136 mmol/L (136-145)
[2018-05-02 22:38] LABS: Troponin I Less than 0.010 ng/mL (< 0.028)
[2018-05-02] MEDS ORDERED: Fentanyl 100 MCG/2 ML VIAL ONE (22:50)
--- NOTE | 2018-05-02 22:57 | CT ---
CT BRAIN WITHOUT CONTRAST 05/02/18 HISTORY: Altered mental status. COMPARISON: None. FINDINGS: No acute territorial infarct or hemorrhage. No midline shifts or mass effects. Ventricular size and e xtra-axial CSF spaces are normal. Clivus is intact. The paranasal sinuses and mastoids are clear. Globes are normal. IMPRESSION: No acute intracranial abnormality. POS: [facility]
[2018-05-02] MEDS ORDERED: Ondansetron HCl/PF 4 MG/2 ML Vial ONE (23:11)
[2018-05-02] MEDS ORDERED: cefTRIAXone\\ROCEPHIN 1 GM VIAL ONE (23:37)
[2018-05-02] MEDS ORDERED: Sodium Chloride 0.9% 100 ML ONE (23:37)
[2018-05-03 00:01] LABS: CSF Source CSF; Clarity Clear (Clear); RBC Count - Manual 134 /cumm (None Seen); RBC Count - Manual 6 /cumm (None Seen); Tube # 1; Tube # 4; WBC/NonHematics Count - Manual 1 /cumm (0-5)
[2018-05-03 01:09] LABS: CSF, Glucose 70 mg/dl (40-70); CSF, Protein 30 mg/dL (15-40)
[2018-05-03 01:15] LABS: Color Of CSF Supernatant COLORLESS (Colorless); Tube # 2; Unspun CSF Color COLORLESS (Colorless)
[2018-05-03] MEDS ORDERED: Ondansetron ODT 4 MG TAB SL PRN (01:57)
[2018-05-03] MEDS ORDERED: Ondansetron HCl/PF 4 MG/2 ML Vial IVP PRN (01:57)
[2018-05-03] MEDS ORDERED: Sodium Chloride 0.9% 1,000 ML IV SCH (02:00)
[2018-05-03 02:13] VITALS: BMI 26.7
--- NOTE | 2018-05-03 08:58 | CT ---
PRELIMINARY REPORT/[facility]/EMERGENTY AFTER-HOURS PROCEDURE CT Abdomen and Pelvis Without Intravenous Contrast EXAM DATE/TIME: 05/03/2018 12:36 AM CLINICAL HISTORY: 72 years old, female; Pain; Abdominal pain; Generalized; Patient HX: History provided by patient, his tory provided by patient's family, [id number] presents to ed for AMS. Family reports they came home from [facility] and she was laying down because she had a headache that has now resolved. Family reports previously in the day PT said she was tired. Family reports she seemed confused on the phone. Family reports she seemed fine at around 1530 today. TECHNIQUE: Axial computed tomography images of the abdomen and pelvis without intravenous contrast. Coronal reformatted images were created and reviewed. COMPARISON: No relevant prior studies available. FINDINGS: ABDOMEN: Limited evaluation without enteric or IV contrast. No suspicious mass or airspace process in the visualized lung bases. Liver, spleen, pancreas and adrenal glands are unremarkable for noncontrast CT. Prominent central qamar e ducts, likely postcholecystectomy capacitance effect. Kidneys show no stone or hydronephrosis. No e vidence of bowel obstruction, pneumoperitoneum or free abdominal fluid. Atherosclerotic change present in the aorta, without aneurysm. PELVIS: Small, nonspecific mesenteric and RLQ lymph nodes are present. Appendix is not seen. No RLQ inflammation to suggest appendicitis. Diverticular changes are present within the colon without inflammation. Bladder appears normal. Degenerative changes are seen in the lumbar spine with disc height loss. IMPRESSION: No acute surgical or inflammatory intra-abdominal or pelvic process. Colonic diverticular changes without evidence of acute diverticulitis Thank you for allowing us to participate in the care of your patient. Dictated and Authenticated by: Irvin Oropeza MD 05/03/2018 1:28 AM Central Time ([place] & [place]) FINAL REPORT CT ABDOMEN AND PELVIS WITHOUT CONTRAST: Date: 05/02/18 FINDINGS/IMPRESSION: I agree with the preliminary report given by Lucas. POS: [facility]
[2018-05-03] MEDS ORDERED: Guaifenesin DM 100-10/5 ML UDCUP PO PRN (12:01)
[2018-05-03] MEDS: Sodium Chloride 0.9% 1,000 ML IV SCH (12:47)
--- NOTE | 2018-05-03 14:02 | HP ---
REASON FOR ADMISSION: Acute encephalopathy, possible sepsis, dehydration, hypokalemia, metabolic aci dosis. HISTORY OF PRESENT ILLNESS: Please note majority of this history is obtained by ER records as nathalie huynh does not really recall what really happened last evening. She knows she was nauseating and vomited once on arrival here. She has had one episode of diarrhea as well. She states she has history of k idney stones and thought this was all related to that. She also felt like she was freezing yesterday . She has chronic dry cough. Her daughter and son-in-law lives with her. She normally ambulates by herself. No complaints of chest pain, palpitation, PND or orthopnea. The patient is still groggy a bit this morning. She is taking a while to respond to verbal questions at present. PAST MEDICAL AND SURGICAL HISTORY: Hypertension, hypothyroidism, dyslipidemia, history of asthma, ri ght second toe amputation, thyroid surgery, left shoulder surgery, appendectomy, cholecystectomy, ton sillectomy, tubal ligation. CURRENT MEDICATIONS: Per her prior records, patient is on levothyroxine 25 mcg daily, Meloxicam 7.5 mg p.o. twice daily, Zoloft 100 mg daily, Advair Diskus inhaler 2 puffs daily, atorvastatin 40 mg alondra ly, Singulair 10 mg p.o. q.p.m., aspirin 81 mg p.o. daily. ALLERGIES: No known drug allergies. PERSONAL HISTORY: Quit smoking 30 years ago, smoked around less than a pack a day for nearly 10 year s or so. Does not abuse alcohol or drugs. FAMILY HISTORY: Cannot be obtained as patient is not fully oriented. CODE STATUS: FULL. Power of banking attorney is her daughter, Ms. Josselyn Holt. REVIEW OF SYSTEMS: Cannot be obtained due to patient's altered sensorium. PHYSICAL EXAMINATION: GENERAL: The patient is a 72-year-old female who is currently not in any acute distress. VITAL SIGNS: Blood pressure 136/90, pulse 104 per minute, respiratory rate 22 per minute, temperatur e 100.1 degrees on arrival, saturating 95% on room air. NECK: Supple, no elevated JVD. EYES: Extraocular muscles intact. Pupils reacting to light. ORAL CAVITY: Mucous membranes are dry. No exudates or congestion. CARDIOVASCULAR SYSTEM: S1, S2 heard. Regular rhythm. RESPIRATORY SYSTEM: Air entry 1+ bilateral. No rales or rhonchi. ABDOMEN: Soft, bowel sounds heard. No tenderness, rigidity or guarding. EXTREMITIES: No peripheral edema or calf tenderness. VASCULAR SYSTEM: Peripheral pulses 1+ bilateral, no ischemic ulcerations or gangrene. CENTRAL NERVOUS SYSTEM: No gross focal deficits noted. The patient is lethargic, but responds well to verbal questions, just that it takes at least a minute or more to get responses. PSYCHIATRIC SYSTEM: No obvious hallucinations or delusions. LABORATORY DATA AND IMAGING DATA: White count of 13, hemoglobin and hematocrit 11 and 35, platelet c ount 174 with 86% neutrophils. Sodium 136, potassium 3.3, serum bicarbonate 21, BUN 21, creatinine 0 .6, glucose 115. Liver enzymes within normal limits. One set of troponin is negative. BNP 55. TSH 0.159. Please note the TSH level was obtained at 10:00 p.m. last evening. CSF tube #4 has 1 WBC an d 6 RBCs and tube #2 is colorless with 70 mg per deciliter of glucose and 30 mg per deciliter of prot ein. Urine drug screen is negative. Preliminary blood cultures x2 show no growth. CSF Gram stain s howed no organisms or WBCs. There was no growth at [address] of the abdomen and pelvis without I V contrast done showed no acute abnormalities. CT brain without contrast showed no acute intracrania l abnormalities. Chest x-ray done showed no acute cardiopulmonary abnormalities. EKG done shows sin us tachycardia at 104 beats per minute. CLINICAL IMPRESSION AND PLAN: The patient will be admitted to medical floor for acute encephalopathy , sepsis, moderate dehydration. Her blood and urine cultures have been obtained in the ER and follow up on that. The patient's CSF is benign with no signs of infection at present. She has been starte d on Levaquin from the ER and will continue the same. She will be gently hydrated with normal saline at 70 mL per hour. We will continue her home medications including aspirin, Lipitor, levothyroxine, Singulair and Zoloft as before. PT, OT evaluations will be requested once the patient is more awake . We will continue to closely monitor her on medical floor.
[2018-05-03] MEDS ORDERED: Ibuprofen 200 MG TAB PO SCH (17:00)
[2018-05-03] MEDS: Ondansetron HCl/PF 4 MG/2 ML Vial IVP PRN (18:10)
[2018-05-03] MEDS: Mometasone/Formoterol 120 PUFF INHALER INH SCH (18:57)
[2018-05-03] MEDS: Famotidine 20 MG TAB PO SCH (20:29)
[2018-05-03] MEDS: Montelukast Sodium 10 mg Tablet PO SCH (20:29)
[2018-05-03] MEDS ORDERED: Docusate 100 MG CAP PO SCH (21:00)
[2018-05-03] MEDS ORDERED: SALMETEROL INH SCH (21:00)
[2018-05-03] MEDS ORDERED: Meloxicam 7.5 MG TAB PO SCH (21:00)
[2018-05-03] MEDS ORDERED: FLUTICASONE INH SCH (21:00)
[2018-05-04] MEDS: Ondansetron HCl/PF 4 MG/2 ML Vial IVP PRN ×4 (00:14→23:53)
[2018-05-04] MEDS: Sodium Chloride 0.9% 1,000 ML IV SCH ×2 (03:59→17:33)
[2018-05-04 04:41] LABS: Band 15 % (5-11); Hemoglobin 10.9 g/dL (12.0-16.0); Hypochromia SLIGHT = 6-15 cells (100X) (0-5/hpf); Lymphocytes 10 % (21-51); MDiff Complete? YES; Mean Corpuscular HGB CONC 33.3 g/dL (32.0-36.0); Mean Corpuscular Hemoglobin 29.1 pg (27.0-31.0); Mean Corpuscular Volume 87.3 fL (78.0-98.0); Mean Platelet Volume 9.1 fL (7.4-10.4); Monocytes 3 % (0-10); Neutrophil 72 % (42-75); PLT Morphology Comment Appears Adequate; Platelet Count 132 thou/uL (130-400); RBC Distribution Width 11.6 % (11.5-14.5); Red Blood Cell (RBC) Count 3.76 mill/uL (4.20-5.40); White Blood Cell (WBC) Count 12.5 thou/uL (4.8-10.8)
[2018-05-04 04:43] LABS: Anion Gap 12 mmol/L (10-20); BUN (Urea Nitrogen) 15 mg/dL (9.8-20.1); Calc. Creatinine Clearance 88 mL/min (70-130); Calcium 7.7 mg/dL (7.8-10.44); Carbon Dioxide 18 mmol/L (23-31); Chloride 112 mmol/L (98-107); Estimated GFR-MDRD Greater than 90; Glucose 118 mg/dL (83-110); Sodium 139 mmol/L (136-145)
[2018-05-04 04:59] LABS: Potassium 2.9 mmol/L (3.5-5.1)
[2018-05-04] MEDS ORDERED: Potassium Chloride 20 MEQ TAB PO SCH (05:30)
[2018-05-04] MEDS: Mometasone/Formoterol 120 PUFF INHALER INH SCH ×2 (06:38→18:27)
[2018-05-04] MEDS: Potassium Chloride 20 MEQ TAB PO SCH ×4 (08:44→23:53)
[2018-05-04] MEDS: Levothyroxine Sodium 75 MCG TAB PO SCH (08:45)
[2018-05-04] MEDS: Atorvastatin Calcium 40 MG TAB PO SCH (08:45)
[2018-05-04] MEDS: Famotidine 20 MG TAB PO SCH ×2 (08:45→20:38)
[2018-05-04] MEDS: Enoxaparin Sodium 40 MG/0.4 ML SYRINGE SC SCH (08:46)
[2018-05-04 10:37] LABS: Potassium 3.4 mmol/L (3.5-5.1)
--- NOTE | 2018-05-04 12:32 | PDOC.PN ---
- Subjective Encounter Start Date: 05/04/18 Encounter Start Time: 11:00 Subjective: awake, feels better -: has mild LUQ pain, no nausea -: has had multiple episodes of diarrhea from admission - Objective Resuscitation Status: Resuscitation Status FULL:Full Resuscitation MAR Reviewed: Yes Vital Signs & Weight: Vital Signs (12 hours) Temp Pulse Resp BP Pulse Ox Pulse Ox Pulse Ox 05/04/18 09:26 97 97 05/04/18 08:00 97.7 F 101 H 20 95 05/04/18 07:40 97.7 F 101 H 20 129/77 96 05/04/18 06:45 97 05/04/18 06:38 97 16 97 05/04/18 03:59 98.0 F 97 17 113/69 98 Weight Weight 146 lb 4.8 oz I&O: 05/03/18 05/04/18 05/05/18 06:59 06:59 06:59 Intake Total 400 1700 Output Total 100 Balance 300 1700 Result Diagrams: 05/04/18 03:55 05/04/18 10:14 Phys Exam - Physical Examination HEENT: PERRLA, sclera anicteric Neck: no JVD, supple Respiratory: no wheezing, no rales Cardiovascular: RRR, no significant murmur Gastrointestinal: soft, no distention, positive bowel sounds no rigidity or guarding, mild tenderness LUQ Musculoskeletal: no edema, pulses present Neurological: non-focal, moves all 4 limbs Psychiatric: normal affect, A&O x 3 Dx/Plan (1) Sepsis Code(s): A41.9 - SEPSIS, UNSPECIFIED ORGANISM Status: Acute Qualifiers: Sepsis type: sepsis due to unspecified organism Qualified Code(s): A41.9 - Sepsis, unspecified organism (2) Dehydration Code(s): E86.0 - DEHYDRATION Status: Acute (3) Diverticulitis Code(s): K57.92 - DVTRCLI OF INTEST, PART UNSP, W/O PERF OR ABSCESS W/O BLEED Status: Suspected (4) Metabolic acidosis Code(s): E87.2 - ACIDOSIS Status: Acute (5) Hypokalemia Code(s): E87.6 - HYPOKALEMIA Status: Acute (6) Asthma Code(s): J45.909 - UNSPECIFIED ASTHMA, UNCOMPLICATED Status: Chronic Qualifiers: Asthma severity: mild Asthma persistence: intermittent Asthma complication type: uncomplicated Qualified Code(s): J45.20 - Mild intermittent asthma, uncomplicated (7) Hypothyroidism Code(s): E03.9 - HYPOTHYROIDISM, UNSPECIFIED Status: Chronic Qualifiers: Hypothyroidism type: unspecified Qualified Code(s): E03.9 - Hypothyroidism , unspecified - Plan is on levaquin, will add flagyl -: GI consult -: initial cdiff, blood cs x2 -ve, cxr no infiltr, ct abd no ac abnormalities -: d/w patient and daughter at bedside -: continue iv hydration, replace electrolytes, encourage po intake * . Review of Systems - Medications/Allergies Allergies/Adverse Reactions: Allergies Allergy/AdvReac Type Severity Reaction Status Date / Time No Known Drug Allergies Allergy Verified 05/03/18 02:20 Medications: Current Medications Acetaminophen (Tylenol) 650 mg PO Q4H PRN PRN Reason: Headache/Fever or Pain Aspirin (Aspirin Chewable) 81 mg PO DAILY [facility] Last Admin: 05/04/18 08:45 Dose: Not Given Atorvastatin Calcium (Lipitor) 40 mg PO DAILY [facility] Last Admin: 05/04/18 08:45 Dose: 40 mg Enoxaparin Sodium (Lovenox) 40 mg SC 0900 [facility] Last Admin: 05/04/18 08:46 Dose: 40 mg Famotidine (Pepcid) 20 mg PO BID [facility] Last Admin: 05/04/18 08:45 Dose: 20 mg Guaifenesin/Dextromethorphan (Robitussin Dm) 15 ml PO Q4H PRN PRN Reason: Cough Levofloxacin 500 mg/ Device 100 mls @ 100 mls/hr IVPB 2100 [facility] Last Admin: 05/03/18 20:25 Dose: 100 mls Sodium Chloride (Normal Saline 0.9%) 1,000 mls @ 70 mls/hr IV .[id number] [facility] Last Admin: 05/04/18 03:59 Dose: 1,000 mls Levothyroxine Sodium (Synthroid) 75 mcg PO QAM [facility] Last Admin: 05/04/18 08:45 Dose: 75 mcg Mometasone Furoate/Formoterol Fumar (Dulera 200 Mcg/5 Mcg Inhaler) 2 puff INH BID-RT [facility] Last Admin: 05/04/18 06:38 Dose: 2 puff Montelukast Sodium (Singulair) 10 mg PO QPM [facility] Last Admin: 05/03/18 20:29 Dose: 10 mg Ondansetron HCl (Zofran) 4 mg IVP Q6H PRN PRN Reason: Nausea/Vomiting Last Admin: 05/04/18 08:44 Dose: 4 mg Potassium Chloride (K-Dur) 40 meq PO Q6H [facility] Stop: 05/05/18 07:01 Last Admin: 05/04/18 08:44 Dose: 40 meq Sertraline HCl (Zoloft) 100 mg PO DAILY [facility] Last Admin: 05/04/18 08:45 Dose: 100 mg Sodium Chloride (Flush - Normal Saline) 10 ml IVF PRN PRN PRN Reason: Saline Flush
[2018-05-04] MEDS: metroNIDAZOLE 500 MG TAB PO SCH ×2 (14:47→20:38)
[2018-05-04] MEDS: Montelukast Sodium 10 mg Tablet PO SCH (20:38)
[2018-05-04] MEDS: diphenhydrAMINE 25 MG CAP PO PRN (20:38)
[2018-05-05] MEDS: Sodium Chloride 0.9% 1,000 ML IV SCH ×2 (06:10→21:06)
[2018-05-05] MEDS: Potassium Chloride 20 MEQ TAB PO SCH (06:10)
[2018-05-05] MEDS: Mometasone/Formoterol 120 PUFF INHALER INH SCH ×2 (06:56→17:57)
[2018-05-05 08:28] LABS: Hemoglobin 10.3 g/dL (12.0-16.0); Mean Corpuscular HGB CONC 33.9 g/dL (32.0-36.0); Mean Corpuscular Hemoglobin 29.5 pg (27.0-31.0); Platelet Count 123 thou/uL (130-400); RBC Distribution Width 11.7 % (11.5-14.5); Red Blood Cell (RBC) Count 3.49 mill/uL (4.20-5.40); White Blood Cell (WBC) Count 9.2 thou/uL (4.8-10.8)
[2018-05-05 09:20] LABS: ALT (SGPT) 11 U/L (8-55); AST (SGOT) 15 U/L (5-34); Albumin 3.1 g/dL (3.4-4.8); Alkaline Phosphatase 74 U/L (40-150); Anion Gap 11 mmol/L (10-20); BUN (Urea Nitrogen) 10 mg/dL (9.8-20.1); Bilirubin, Total 0.4 mg/dL (0.2-1.2); Calc. Creatinine Clearance 81 mL/min (70-130); Calcium 8.3 mg/dL (7.8-10.44); Carbon Dioxide 22 mmol/L (23-31); Chloride 111 mmol/L (98-107); Estimated GFR-MDRD Greater than 90; Globulin 2.3 g/dL (2.4-3.5); Glucose 94 mg/dL (83-110); Potassium 4.8 mmol/L (3.5-5.1); Protein, Total 5.4 g/dL (6.0-8.3); Sodium 139 mmol/L (136-145)
[2018-05-05 10:06] LABS: Band 7 % (5-11); Eosinophils 5 % (0-10); Lymphocytes 13 % (21-51); MDiff Complete? YES; Monocytes 5 % (0-10); Neutrophil 70 % (42-75)
--- NOTE | 2018-05-05 11:17 | CT ---
CT ABDOMEN AND PELVIS WITH AND WITHOUT CONTRAST: Date: 05/05/18 HISTORY: Sepsis. Diarrhea. Prior stones. COMPARISON: CT abdomen and pelvis without contrast stone protocol dated 05/03/18. FINDINGS: On the noncontrast examination, there is no nephroureterolithiasis. There are bilateral complete dupl icated renal collecting systems. No evidence of obstruction. Too small to characterize hypodensities are present in both renal cortices. There is extensive subcutaneous edema and inflammation of the ascending colon and portions of the tra nsverse colon indicating colitis. This has progressed from the 05/03/18 examination. Moderate atherosclerotic plaque of the aorta. There is a new moderate right layering pleural effusion . Mild atelectasis in the lung bases. Mild periportal edema and distended IVC, likely sequelae of aggre ssive hydration. Spleen is unremarkable, as well as the pancreas. There is some mild submucosal edema of the proximal small bowel. Extensive diverticular disease of si gmoid colon without active inflammation. Mild presacral and left paracolic gutter fluid. IMPRESSION: 1. Findings suggestive of enterocolitis with new submucosal edema and stranding of the ascending and transverse colon, as well as the proximal small bowel. 2. New presacral and paracolic gutter fluid, likely sequelae of underlying inflammation. 3. No nephroureterolithiasis or hydroureteronephrosis. No secondary evidence of recently passed ston e. 4. Colonic diverticular disease without active inflammation. 5. Prior cholecystectomy. 6. Complete duplicated renal collecting systems. No evidence of obstruction. POS: [facility]
--- NOTE | 2018-05-05 11:17 | PDOC.PN ---
- Subjective Encounter Start Date: 05/05/18 Encounter Start Time: 08:40 Subjective: no sob or abd pain -: diarrhea freq is down to 5 in last 24hrs -: is eating but worried all of it is coming down in her stool - Objective Resuscitation Status: Resuscitation Status FULL:Full Resuscitation MAR Reviewed: Yes Vital Signs & Weight: Vital Signs (12 hours) Temp Pulse Resp BP Pulse Ox 05/05/18 09:30 97.8 F 72 18 96 05/05/18 07:05 97.8 F 72 18 121/79 96 Weight Weight 146 lb 4.8 oz I&O: 05/04/18 05/05/18 05/06/18 06:59 06:59 06:59 Intake Total 1700 1080 Balance 1700 1080 Result Diagrams: 05/05/18 08:13 05/05/18 08:13 Phys Exam - Physical Examination HEENT: PERRLA, sclera anicteric Neck: no JVD, supple Respiratory: no wheezing, no rales Cardiovascular: RRR, no significant murmur Gastrointestinal: soft, no distention, positive bowel sounds mild tenderness in RUQ, no rigidity or guarding Musculoskeletal: no edema, pulses present Neurological: non-focal, moves all 4 limbs Psychiatric: normal affect, A&O x 3 Dx/Plan (1) Sepsis Code(s): A41.9 - SEPSIS, UNSPECIFIED ORGANISM Status: Acute Qualifiers: Sepsis type: sepsis due to unspecified organism Qualified Code(s): A41.9 - Sepsis, unspecified organism (2) Bacteremia due to Gram-negative bacteria Code(s): R78.81 - BACTEREMIA Status: Acute (3) Dehydration Code(s): E86.0 - DEHYDRATION Status: Acute (4) Diverticulitis Code(s): K57.92 - DVTRCLI OF INTEST, PART UNSP, W/O PERF OR ABSCESS W/O BLEED Status: Suspected (5) Metabolic acidosis Code(s): E87.2 - ACIDOSIS Status: Acute (6) Hypokalemia Code(s): E87.6 - HYPOKALEMIA Status: Acute (7) Asthma Code(s): J45.909 - UNSPECIFIED ASTHMA, UNCOMPLICATED Status: Chronic Qualifiers: Asthma severity: mild Asthma persistence: intermittent Asthma complication type: uncomplicated Qualified Code(s): J45.20 - Mild intermittent asthma, uncomplicated (8) Hypothyroidism Code(s): E03.9 - HYPOTHYROIDISM, UNSPECIFIED Status: Chronic Qualifiers: Hypothyroidism type: unspecified Qualified Code(s): E03.9 - Hypothyroidism , unspecified - Plan await full blood culture results, 1/2 gm -ve -: CT abd with contrast -: diarrhea freq is down, stool campylobacter ag is +ve -: on levaquin and flagyl, continue iv hydration -: ID consult for help with bacteremia * . Review of Systems - Medications/Allergies Allergies/Adverse Reactions: Allergies Allergy/AdvReac Type Severity Reaction Status Date / Time No Known Drug Allergies Allergy Verified 05/03/18 02:20 Medications: Current Medications Acetaminophen (Tylenol) 650 mg PO Q4H PRN PRN Reason: Headache/Fever or Pain Aspirin (Aspirin Chewable) 81 mg PO DAILY [facility] Last Admin: 05/04/18 08:45 Dose: Not Given Atorvastatin Calcium (Lipitor) 40 mg PO DAILY [facility] Last Admin: 05/04/18 08:45 Dose: 40 mg Diphenhydramine HCl (Benadryl) 25 mg PO HSPRN PRN PRN Reason: Itching & Insomnia Last Admin: 05/04/18 20:38 Dose: 25 mg Enoxaparin Sodium (Lovenox) 40 mg SC 0900 [facility] Last Admin: 05/04/18 08:46 Dose: 40 mg Famotidine (Pepcid) 20 mg PO BID [facility] Last Admin: 05/04/18 20:38 Dose: 20 mg Guaifenesin/Dextromethorphan (Robitussin Dm) 15 ml PO Q4H PRN PRN Reason: Cough Levofloxacin 500 mg/ Device 100 mls @ 100 mls/hr IVPB 2100 [facility] Last Admin: 05/04/18 20:38 Dose: 100 mls Sodium Chloride (Normal Saline 0.9%) 1,000 mls @ 70 mls/hr IV .[id number] [facility] Last Admin: 05/05/18 06:10 Dose: 1,000 mls Levothyroxine Sodium (Synthroid) 75 mcg PO QAM [facility] Last Admin: 05/04/18 08:45 Dose: 75 mcg Metronidazole (Flagyl) 500 mg PO TID [facility] Last Admin: 05/04/18 20:38 Dose: 500 mg Mometasone Furoate/Formoterol Fumar (Dulera 200 Mcg/5 Mcg Inhaler) 2 puff INH BID-RT [facility] Last Admin: 05/05/18 06:56 Dose: 2 puff Montelukast Sodium (Singulair) 10 mg PO QPM [facility] Last Admin: 05/04/18 20:38 Dose: 10 mg Ondansetron HCl (Zofran) 4 mg IVP Q6H PRN PRN Reason: Nausea/Vomiting Last Admin: 05/04/18 23:53 Dose: 4 mg Sertraline HCl (Zoloft) 100 mg PO DAILY [facility] Last Admin: 05/04/18 08:45 Dose: 100 mg Sodium Chloride (Flush - Normal Saline) 10 ml IVF PRN PRN PRN Reason: Saline Flush
[2018-05-05] MEDS: Levothyroxine Sodium 75 MCG TAB PO SCH (11:52)
[2018-05-05] MEDS: Famotidine 20 MG TAB PO SCH ×2 (11:52→20:54)
[2018-05-05] MEDS: Atorvastatin Calcium 40 MG TAB PO SCH (11:52)
[2018-05-05] MEDS: metroNIDAZOLE 500 MG TAB PO SCH (11:53)
[2018-05-05] MEDS: Enoxaparin Sodium 40 MG/0.4 ML SYRINGE SC SCH (11:53)
[2018-05-05] MEDS ORDERED: ISOVUE-370 76%-LOCM 1 ML ONE (13:29)
--- NOTE | 2018-05-05 14:51 | CON ---
DATE OF CONSULTATION: 05/05/2018 REASON FOR CONSULTATION: Colitis with bacteremia. HISTORY OF PRESENT ILLNESS: This is a 72-year-old lady with a history of hypertension, hypothyroidis m, asthma, otherwise fairly active and healthy, who developed general malaise and then altered mental status, who was brought by a relative to the emergency room. There had been reports of nausea and d iarrhea. The patient herself does not recall, but the family members do remember those episodes. Af ter being admitted, she had profuse diarrhea, still having liquid stools intermittently. Vomiting oc curred this morning, but has not had any episode since. Ate lunch and seems to be tolerating it well , now at this time feels better. She is not yet back to baseline. Some headaches. No visual sympto ms, sore throat, odynophagia, dysphagia. No cough, no chest pain, no dyspnea. Has had quite a bit o f diffuse abdominal tenderness and cramps. No dysuria and no hematuria. No hematochezia or melena. She has chronic joint symptoms and mostly in the knees. She is scheduled for knee replacement in e near future. PAST MEDICAL HISTORY: Hypertension, hypothyroidism, dyslipidemia, asthma, thyroid resection, shoulde r repair, appendectomy, cholecystectomy, tonsillectomy, tubal ligation. MEDICATIONS: Levothyroxine, meloxicam, Zoloft, Advair Diskus, atorvastatin, Singulair, aspirin, and is on levofloxacin and metronidazole. ALLERGIES: None. SOCIAL HISTORY: Former smoker. She lives in [place] and has dogs. Has a large big yard where she grows vegetables. FAMILY HISTORY: Noncontributory. She lives with relatives in [place]. PHYSICAL EXAMINATION: VITAL SIGNS: Temperature max 103, now 97.8; blood pressure 120/79; pulse 72; respirations 18; O2 sat 96%. SKIN EXAM: With no significant findings. Peripheral IV access. She is voiding spontaneously withou t difficulty. No lymphadenopathy. HEENT: Ocular movements are conjugate. Nasal passages patent. Oral cavity with quite a few teeth i n place with some decay and no oral mucosal lesions. NECK: Supple. No jugular vein distention or carotid bruits. LUNGS: Symmetric clear breath sounds. HEART: S1 and S2, regular rate. No S3 or S4. ABDOMEN: Soft with diffuse tenderness. Bowel sounds are present. No rebound tenderness. No bladde r distention. EXTREMITIES: No joint inflammatory activity. 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 Pulses 1+ in olamide salis pedis. Cap refill is less than 3 seconds. No edema. Able to move extremities on command. NEUROLOGIC: Cognitive function appears to be intact. LABORATORY DATA: White cell count is down to 9.2, hemoglobin 10.3, platelets 123, and 70% neutrophil s. Sodium 139, creatinine 0.59. Liver profile normal. Albumin 3.1. Urinalysis normal. She had a CSF examination, which was normal. Toxicology was negative. Microbiology with negative Clostridium difficile. Campylobacter assay was positive. E. coli 0157 pending. Shiga toxin negative. One out of two sets of blood cultures with gram-negative mervin, yet to be fully identified and susceptibility t ested. The patient had abdomen and pelvis CT. This was remarkable for ascending colitis, mostly in the ascending colon and transverse. ASSSESSMENT: Hypothyroidism, otherwise fairly healthy elderly female with acute colitis with bactere mary kay, positive Campylobacter antigen test. DISCUSSION: Differential diagnosis includes Campylobacter jejuni or more likely Campylobacter fetus bacteremia. Other Campylobacter species are also possible. Other possibilities would be the differe nt gram-negative including Salmonella enteritidis or other enteric pathogen. Campylobacter is a more likely scenario. Typically acquired by the ingestion of contaminated poultry or meat products, rare ly can be transmitted by animals such as dogs to human beings. The rates of resistance to quinolones among Campylobacter is up to 30%, so we will switch her to meropenem until we have the final identif ication and susceptibility testing for the organism. Some forms of Campylobacter infections can be a ssociated with Guillain-Gulliver type of manifestations.
[2018-05-05] MEDS: Acetaminophen 325 MG TAB PO PRN (16:18)
[2018-05-05] MEDS: Montelukast Sodium 10 mg Tablet PO SCH (20:53)
[2018-05-05] MEDS: diphenhydrAMINE 25 MG CAP PO PRN (20:53)
[2018-05-05] MEDS: MEROPENEM 1 GM/50 ML 1 GM in Premix Bag 1 BAG IVPB SCH (20:54)
[2018-05-05] MEDS ORDERED: Meropenem 1 GM in Sodium Chloride 0.9% 100 ML IVPB SCH (22:00)
[2018-05-06 05:13] LABS: #Eosinphils 0.3 thou/uL (0.0-0.7); #Lymphocytes 1.9 thou/uL (1.20-3.40); #Monocytes 0.5 thou/uL (0.11-0.59); #Neutrophils 4.2 thou/uL (1.40-6.50); %Basophils 0.1 % (0.0-1.0); %Lymphocytes 27.5 % (21.0-51.0); %Monocytes 6.6 % (0.0-10.0); %Neutrophils 61.9 % (42.0-75.0); Hemoglobin 10.4 g/dL (12.0-16.0); Mean Corpuscular HGB CONC 34.6 g/dL (32.0-36.0); Mean Corpuscular Hemoglobin 29.8 pg (27.0-31.0); Mean Corpuscular Volume 86.1 fL (78.0-98.0); Mean Platelet Volume 9.2 fL (7.4-10.4); Platelet Count 143 thou/uL (130-400); RBC Distribution Width 11.7 % (11.5-14.5); Red Blood Cell (RBC) Count 3.51 mill/uL (4.20-5.40); White Blood Cell (WBC) Count 6.8 thou/uL (4.8-10.8)
[2018-05-06 05:31] LABS: Anion Gap 12 mmol/L (10-20); BUN (Urea Nitrogen) 11 mg/dL (9.8-20.1); Calc. Creatinine Clearance 88 mL/min (70-130); Calcium 8.1 mg/dL (7.8-10.44); Carbon Dioxide 21 mmol/L (23-31); Chloride 112 mmol/L (98-107); Estimated GFR-MDRD Greater than 90; Glucose 96 mg/dL (83-110); Potassium 3.7 mmol/L (3.5-5.1); Sodium 141 mmol/L (136-145)
[2018-05-06] MEDS: MEROPENEM 1 GM/50 ML 1 GM in Premix Bag 1 BAG IVPB SCH ×3 (05:45→21:23)
[2018-05-06] MEDS: Levothyroxine Sodium 75 MCG TAB PO SCH (05:46)
[2018-05-06] MEDS: Mometasone/Formoterol 120 PUFF INHALER INH SCH ×2 (07:38→18:29)
[2018-05-06] MEDS: Famotidine 20 MG TAB PO SCH ×2 (08:50→20:18)
[2018-05-06] MEDS: Atorvastatin Calcium 40 MG TAB PO SCH (08:50)
[2018-05-06] MEDS: Enoxaparin Sodium 40 MG/0.4 ML SYRINGE SC SCH (08:50)
--- NOTE | 2018-05-06 10:53 | EKG ---
Test Reason : Blood Pressure : / mmHG Vent. Rate : 104 BPM Atrial Rate : 104 BPM P-R Int : 180 ms QRS Dur : 070 ms QT Int : 354 ms P-R-T Axes : 058 -18 053 degrees QTc Int : 465 ms Sinus tachycardia with Fusion complexes Cannot rule out Anterior infarct , age undetermined Abnormal ECG Confirmed by TREE SHAHID, IKER ([id number]), assistant film editor ARIK DANIELS ([id number]) on 05/06/2018 10:52:59 AM Referred By: Confirmed By:IKER LEAVITT MD
--- NOTE | 2018-05-06 13:28 | PDOC.PN ---
- Subjective Encounter Start Date: 05/06/18 Encounter Start Time: 11:15 Subjective: feels good this morning -: is sitting in chair, tolerating oral diet well -: no nausea or diarrhea from am - Objective Resuscitation Status: Resuscitation Status FULL:Full Resuscitation MAR Reviewed: Yes Vital Signs & Weight: Vital Signs (12 hours) Temp Pulse Resp BP Pulse Ox 05/06/18 07:40 96 05/06/18 07:38 81 18 96 05/06/18 07:14 97.9 F 62 16 95 05/06/18 07:13 97.9 F 62 16 124/70 95 Weight Weight 146 lb 4.8 oz I&O: 05/05/18 05/06/18 05/07/18 06:59 06:59 06:59 Intake Total 1080 2350 Output Total 3000 Balance 1080 -650 Result Diagrams: 05/06/18 04:44 05/06/18 04:44 Phys Exam - Physical Examination HEENT: PERRLA, moist MMs Neck: no JVD, supple Respiratory: no wheezing, no rales Cardiovascular: RRR, no significant murmur Gastrointestinal: soft, non-tender, no distention, positive bowel sounds Musculoskeletal: no edema, pulses present Neurological: non-focal, moves all 4 limbs Psychiatric: normal affect, A&O x 3 Dx/Plan (1) Sepsis Code(s): A41.9 - SEPSIS, UNSPECIFIED ORGANISM Status: Acute Comment: due to campylobacter jejuni (2) Bacteremia due to Gram-negative bacteria Code(s): R78.81 - BACTEREMIA Status: Acute (3) Dehydration Code(s): E86.0 - DEHYDRATION Status: Resolved (4) Diverticulitis Code(s): K57.92 - DVTRCLI OF INTEST, PART UNSP, W/O PERF OR ABSCESS W/O BLEED Status: Suspected (5) Metabolic acidosis Code(s): E87.2 - ACIDOSIS Status: Resolved (6) Hypokalemia Code(s): E87.6 - HYPOKALEMIA Status: Resolved (7) Asthma Code(s): J45.909 - UNSPECIFIED ASTHMA, UNCOMPLICATED Status: Chronic Qualifiers: Asthma severity: mild Asthma persistence: intermittent Asthma complication type: uncomplicated Qualified Code(s): J45.20 - Mild intermittent asthma, uncomplicated (8) Hypothyroidism Code(s): E03.9 - HYPOTHYROIDISM, UNSPECIFIED Status: Chronic Qualifiers: Hypothyroidism type: unspecified Qualified Code(s): E03.9 - Hypothyroidism , unspecified - Plan hemostable -: is on meropenem -: blood cs are growing campylobacter jejuni -: encourage oral intake, to ambulate in hallway as tolerated -: dc plan per advice (sensitivities may not be possible per micro) * . Review of Systems - Medications/Allergies Allergies/Adverse Reactions: Allergies Allergy/AdvReac Type Severity Reaction Status Date / Time No Known Drug Allergies Allergy Verified 05/03/18 02:20 Medications: Current Medications Acetaminophen (Tylenol) 650 mg PO Q4H PRN PRN Reason: Headache/Fever or Pain Last Admin: 05/05/18 16:18 Dose: 650 mg Aspirin (Aspirin Chewable) 81 mg PO 2100 [facility] Last Admin: 05/05/18 20:54 Dose: 81 mg Atorvastatin Calcium (Lipitor) 40 mg PO DAILY [facility] Last Admin: 05/06/18 08:50 Dose: 40 mg Diphenhydramine HCl (Benadryl) 25 mg PO HSPRN PRN PRN Reason: Itching & Insomnia Last Admin: 05/05/18 20:53 Dose: 25 mg Enoxaparin Sodium (Lovenox) 40 mg SC 0900 [facility] Last Admin: 05/06/18 08:50 Dose: 40 mg Famotidine (Pepcid) 20 mg PO BID [facility] Last Admin: 05/06/18 08:50 Dose: 20 mg Guaifenesin/Dextromethorphan (Robitussin Dm) 15 ml PO Q4H PRN PRN Reason: Cough Sodium Chloride (Normal Saline 0.9%) 1,000 mls @ 70 mls/hr IV .[id number] [facility] Last Admin: 05/05/18 21:06 Dose: 1,000 mls Meropenem 1 gm/ Device 50 mls @ 100 mls/hr IVPB Q8HR [facility] Last Admin: 05/06/18 05:45 Dose: 50 mls Levothyroxine Sodium (Synthroid) 75 mcg PO 0600 [facility] Last Admin: 05/06/18 05:46 Dose: 75 mcg Mometasone Furoate/Formoterol Fumar (Dulera 200 Mcg/5 Mcg Inhaler) 2 puff INH BID-RT [facility] Last Admin: 05/06/18 07:38 Dose: 2 puff Montelukast Sodium (Singulair) 10 mg PO QPM [facility] Last Admin: 05/05/18 20:53 Dose: 10 mg Ondansetron HCl (Zofran) 4 mg IVP Q6H PRN PRN Reason: Nausea/Vomiting Last Admin: 05/04/18 23:53 Dose: 4 mg Sertraline HCl (Zoloft) 100 mg PO DAILY [facility] Last Admin: 05/06/18 08:50 Dose: 100 mg Sodium Chloride (Flush - Normal Saline) 10 ml IVF PRN PRN PRN Reason: Saline Flush
[2018-05-06] MEDS: Sodium Chloride 0.9% 1,000 ML IV SCH (14:59)
--- NOTE | 2018-05-06 18:29 | PRG ---
DATE OF SERVICE: 05/06/2018 SUBJECTIVE: Feeling almost back to normal. No more diarrhea since yesterday. No respiratory sympto ms or abdominal pain. OBJECTIVE: VITAL SIGNS: T-max 97.9. LUNGS: Clear. HEART: S1, S2, regular rate. ABDOMEN: Soft, not distended. NEUROLOGIC: Nonfocal. LABORATORY DATA: White cell count 6.8. Blood cultures with likely Campylobacter 2/2 sets of blood c ultures. ASSESSMENT AND DISCUSSION: Acute colitis with bacteremia secondary to Campylobacter. Most likely, aguila ding acquired it from her dogs, recently she had a litter of puppies and as the usual behavior of m other dogs, they will eat to the puppy excrement and according to the patient's own report her female dog will kiss her in the mouth and probably she acquired in that way the Campylobacter. I have expl ained to her that she needs to avoid that dog behavior to prevent future recrudescence of this infect ion. In the meantime, we will wait for the final identification and susceptibility for discharge donald nning. If she continues to do well, we could discharge her on oral azithromycin probably or quinolon e tomorrow.
[2018-05-06] MEDS: Montelukast Sodium 10 mg Tablet PO SCH (20:18)
[2018-05-06] MEDS: diphenhydrAMINE 25 MG CAP PO PRN (20:18)
[2018-05-07 04:39] LABS: #Basophils 0.1 thou/uL (0.0-0.2); #Eosinphils 0.4 thou/uL (0.0-0.7); #Lymphocytes 2.3 thou/uL (1.20-3.40); #Monocytes 0.5 thou/uL (0.11-0.59); #Neutrophils 3.4 thou/uL (1.40-6.50); %Basophils 1.1 % (0.0-1.0); %Eosinophils 5.8 % (0.0-10.0); %Monocytes 7.6 % (0.0-10.0); %Neutrophils 51.5 % (42.0-75.0); Hemoglobin 11.1 g/dL (12.0-16.0); Mean Corpuscular HGB CONC 33.6 g/dL (32.0-36.0); Mean Corpuscular Hemoglobin 28.7 pg (27.0-31.0); Mean Corpuscular Volume 85.6 fL (78.0-98.0); Mean Platelet Volume 9.5 fL (7.4-10.4); Platelet Count 169 thou/uL (130-400); RBC Distribution Width 11.6 % (11.5-14.5); Red Blood Cell (RBC) Count 3.88 mill/uL (4.20-5.40); White Blood Cell (WBC) Count 6.7 thou/uL (4.8-10.8)
[2018-05-07 04:44] LABS: Anion Gap 10 mmol/L (10-20); BUN (Urea Nitrogen) 7 mg/dL (9.8-20.1); Calc. Creatinine Clearance 88 mL/min (70-130); Calcium 8.4 mg/dL (7.8-10.44); Carbon Dioxide 27 mmol/L (23-31); Chloride 108 mmol/L (98-107); Estimated GFR-MDRD Greater than 90; Glucose 90 mg/dL (83-110); Potassium 3.4 mmol/L (3.5-5.1); Sodium 142 mmol/L (136-145)
[2018-05-07] MEDS: MEROPENEM 1 GM/50 ML 1 GM in Premix Bag 1 BAG IVPB SCH ×2 (05:51→14:06)
[2018-05-07] MEDS: Sodium Chloride 0.9% 1,000 ML IV SCH (05:52)
[2018-05-07] MEDS: Levothyroxine Sodium 75 MCG TAB PO SCH (05:53)
[2018-05-07] MEDS: Mometasone/Formoterol 120 PUFF INHALER INH SCH (06:37)
[2018-05-07] MEDS: Atorvastatin Calcium 40 MG TAB PO SCH (09:40)
[2018-05-07] MEDS: Acetaminophen 325 MG TAB PO PRN (09:40)
[2018-05-07] MEDS: Famotidine 20 MG TAB PO SCH (09:40)
[2018-05-07] MEDS: Enoxaparin Sodium 40 MG/0.4 ML SYRINGE SC SCH (09:41)
--- NOTE | 2018-05-07 15:02 | PDOC.PN ---
- Subjective Encounter Start Date: 05/07/18 Encounter Start Time: 09:15 Subjective: no diarrhea or vomiting now -: tolerating oral diet -: is amb in hallway - Objective Resuscitation Status: Resuscitation Status FULL:Full Resuscitation MAR Reviewed: Yes Vital Signs & Weight: Vital Signs (12 hours) Temp Pulse Resp BP Pulse Ox 05/07/18 07:59 98.3 F 85 18 98 05/07/18 07:44 98.3 F 85 18 167/80 H 98 05/07/18 06:37 66 20 97 Weight Weight 146 lb 4.8 oz I&O: 05/06/18 05/07/18 05/08/18 06:59 06:59 06:59 Intake Total 2350 3330 Output Total 3000 2000 Balance -650 1330 Result Diagrams: 05/07/18 03:58 05/07/18 03:58 Phys Exam - Physical Examination HEENT: PERRLA, moist MMs Neck: no JVD, supple Respiratory: no wheezing, no rales Cardiovascular: RRR, no significant murmur Gastrointestinal: soft, non-tender, no distention, positive bowel sounds Musculoskeletal: no edema, pulses present Neurological: non-focal, moves all 4 limbs Psychiatric: normal affect, A&O x 3 Dx/Plan (1) Sepsis Code(s): A41.9 - SEPSIS, UNSPECIFIED ORGANISM Status: Acute Comment: due to campylobacter jejuni (2) Bacteremia due to Gram-negative bacteria Code(s): R78.81 - BACTEREMIA Status: Acute (3) Dehydration Code(s): E86.0 - DEHYDRATION Status: Resolved (4) Diverticulitis Code(s): K57.92 - DVTRCLI OF INTEST, PART UNSP, W/O PERF OR ABSCESS W/O BLEED Status: Suspected (5) Metabolic acidosis Code(s): E87.2 - ACIDOSIS Status: Resolved (6) Hypokalemia Code(s): E87.6 - HYPOKALEMIA Status: Resolved (7) Asthma Code(s): J45.909 - UNSPECIFIED ASTHMA, UNCOMPLICATED Status: Chronic Qualifiers: Asthma severity: mild Asthma persistence: intermittent Asthma complication type: uncomplicated Qualified Code(s): J45.20 - Mild intermittent asthma, uncomplicated (8) Hypothyroidism Code(s): E03.9 - HYPOTHYROIDISM, UNSPECIFIED Status: Chronic Qualifiers: Hypothyroidism type: unspecified Qualified Code(s): E03.9 - Hypothyroidism , unspecified - Plan d/w , cultures likely will take a week to come back -: may dc home on azithromycin x 1 week -: to drink water 2 liters/day for next 4 days -: to f/u with in 10 days and hopefully her send out cultures will be -: back by then * . Review of Systems - Medications/Allergies Allergies/Adverse Reactions: Allergies Allergy/AdvReac Type Severity Reaction Status Date / Time No Known Drug Allergies Allergy Verified 05/03/18 02:20 Medications: Current Medications Acetaminophen (Tylenol) 650 mg PO Q4H PRN PRN Reason: Headache/Fever or Pain Last Admin: 05/07/18 09:40 Dose: 650 mg Aspirin (Aspirin Chewable) 81 mg PO 2100 [facility] Last Admin: 05/06/18 20:18 Dose: 81 mg Atorvastatin Calcium (Lipitor) 40 mg PO DAILY [facility] Last Admin: 05/07/18 09:40 Dose: 40 mg Diphenhydramine HCl (Benadryl) 25 mg PO HSPRN PRN PRN Reason: Itching & Insomnia Last Admin: 05/06/18 20:18 Dose: 25 mg Enoxaparin Sodium (Lovenox) 40 mg SC 0900 [facility] Last Admin: 05/07/18 09:41 Dose: 40 mg Famotidine (Pepcid) 20 mg PO BID [facility] Last Admin: 05/07/18 09:40 Dose: 20 mg Guaifenesin/Dextromethorphan (Robitussin Dm) 15 ml PO Q4H PRN PRN Reason: Cough Sodium Chloride (Normal Saline 0.9%) 1,000 mls @ 70 mls/hr IV .[id number] [facility] Last Admin: 05/07/18 05:52 Dose: 1,000 mls Meropenem 1 gm/ Device 50 mls @ 100 mls/hr IVPB Q8HR [facility] Last Admin: 05/07/18 14:06 Dose: 50 mls Levothyroxine Sodium (Synthroid) 75 mcg PO 0600 [facility] Last Admin: 05/07/18 05:53 Dose: 75 mcg Mometasone Furoate/Formoterol Fumar (Dulera 200 Mcg/5 Mcg Inhaler) 2 puff INH BID-RT [facility] Last Admin: 05/07/18 06:37 Dose: 2 puff Montelukast Sodium (Singulair) 10 mg PO QPM [facility] Last Admin: 05/06/18 20:18 Dose: 10 mg Ondansetron HCl (Zofran) 4 mg IVP Q6H PRN PRN Reason: Nausea/Vomiting Last Admin: 05/04/18 23:53 Dose: 4 mg Sertraline HCl (Zoloft) 100 mg PO DAILY [facility] Last Admin: 05/07/18 09:40 Dose: 100 mg Sodium Chloride (Flush - Normal Saline) 10 ml IVF PRN PRN PRN Reason: Saline Flush
[2018-05-07 16:36] VITALS: BP 145/77; TEMP 98
--- NOTE | 2018-05-07 21:43 | DIS ---
DATE OF ADMISSION: 05/02/2018 DATE OF DISCHARGE: 05/07/2018 DISCHARGE DISPOSITION: To home. PRIMARY DISCHARGE DIAGNOSES: Campylobacter jejuni bacteremia with acute gastroenteritis, sepsis. SECONDARY DISCHARGE DIAGNOSES: Moderate dehydration due to above metabolic acidosis, hypokalemia sec ondary to above, history of chronic asthma, hypothyroidism. PROCEDURES DONE DURING HOSPITALIZATION: Chest x-ray done showed no acute cardiopulmonary process. T here are degenerative changes seen incidentally in the left shoulder. CT of the abdomen and pelvis d one showed no acute surgical or inflammatory intra-abdominal or pelvic process seen. There were colo albina diverticular changes without evidence of acute diverticulitis. This CAT scan was without contras t. She has had a subsequent abdominal pelvic CAT scan with and without contrast done on the whi ch showed findings suggestive of enterocolitis with new submucosal edema and stranding of the ascendi ng and transverse colon as well as the proximal small bowel. No nephroureterolithiasis or hydrourete ronephrosis was seen. Blood cultures x2 grew Campylobacter species. Stool for C. diff was negative. Stool for Campylobacter antigen was positive. Negative for Shiga toxin 1 and 2. Urine culture no growth. DISCHARGE MEDICATIONS: Azithromycin 500 mg p.o. daily for another 7 days, aspirin 81 mg p.o. daily, atorvastatin 40 mg p.o. daily, Advair Diskus 2 puffs twice daily, levothyroxine 75 mcg p.o. daily, Si ngulair 10 mg p.o. q.p.m., sertraline 100 mg p.o. daily. ALLERGIES: No known drug allergies. DISCHARGE PLAN: Patient to follow up with Dr. Metcalf in 10 days and primary care physician in 1 week. BRIEF COURSE DURING HOSPITALIZATION: Patient initially got admitted on the with complaints of n ausea, vomiting, abdominal pain and diarrhea. She was clinically dehydrated as well. Patient was ad mitted to the medical floor for sepsis with moderate dehydration and gastroenteritis. Stool studies came back positive for Campylobacter antigen being positive. Patient's blood cultures x2 were also p ositive for Campylobacter. Her sensitivities are pending as this is a send-out lab due to the nature of the organism. She was initially on Levaquin and later switched over to meropenem with complete r esolution of her symptoms. She has been advised to continue on azithromycin for a week. Patient has been advised to stay away from her dogs. She recently had a liter of nearly 9 puppies and has been closely attending to the dogs which might have precipitated her current Campylobacter infection. She was evaluated by Dr. Metcalf as well. The patient needs to follow up with Dr. Metcalf in 10 days by [facility] ch time her Campylobacter sensitivities will be back as well. If she were to have worsening symptoms with diarrhea, abdominal pain, and nausea and vomiting, she needs to come to the emergency room. Pr ior to discharge, she has had one semi-solid stool from last 24 hours and is tolerating oral solid di et. She is also ambulating well. Please see a [id number] documentation on [facility] for the day of discharge.
[2018-05-08 14:32] LABS: Ref Lab Test Ordered CAMP SUCEPTABILITY; Reference Lab Name LABCORP
== END 2018-05-07 17:22 | disposition home or self-care (01) | DRG 871 ==
LOC: ERS 20:37 → T4-A 05-03 00:01
PROVIDERS: ADMIT Internal Medicine; ATTEND Internal Medicine
DX: A41.9 Sepsis, unspecified organism (principal); G93.40 Encephalopathy, unspecified; E87.2 Acidosis; A04.5 Campylobacter enteritis; E87.6 Hypokalemia; J45.909 Unspecified asthma, uncomplicated; E03.9 Hypothyroidism, unspecified; Z89.421 Acquired absence of other right toe(s); A08.4 Viral intestinal infection, unspecified; Z87.442 Personal history of urinary calculi; I10 Essential (primary) hypertension; E78.5 Hyperlipidemia, unspecified; Z79.899 Other long term (current) drug therapy; Z79.2 Long term (current) use of antibiotics; Z79.82 Long term (current) use of aspirin; Z87.891 Personal history of nicotine dependence; J45.30 Mild persistent asthma, uncomplicated
CPT/HCPCS: 36415; 51701; 62270; 70450; 71045; 74176; 74178; 80048; 80053; 80306; 80307; 81003; 82553; 82805; 82945; 83605; 83630; 83690; 83880; 84157; 84443; 84484; 85025; 87040; 87045; 87046; 87070; 87077; 87086; 87205; 87324; 87449; 87899; 89051; 93005; 96361; 96365; 96367; 96375; A4353; G8978-GP-CL; G8979-GP-CJ; G8987-GO-CJ; G8988-GO-CI; J0696; J1650; J1956; J2185; J2405; J3010; J7050

== ENCOUNTER 2023-09-05 22:03 | Emergency (ER) | payer MEDICARE ==
[~2023-09-05 22:03] MED LIST: Iopamidol-370 76% 500 ML MDV (1 ML CHARGE) ONE
[2023-09-05 22:19] LABS: #Basophils 0.1 thou/uL (0.0-0.2); #Eosinphils 0.3 thou/uL (0.0-0.7); #Monocytes 0.8 thou/uL (0.11-0.59); #Neutrophils 3.7 thou/uL (1.40-6.50); %Basophils 0.7 % (0.0-1.0); %Eosinophils 3.7 % (0.0-10.0); %Lymphocytes 36.3 % (21.0-51.0); Hematocrit 34.9 % (36.0-47.0); Hemoglobin 11.3 g/dL (12.0-16.0); Mean Corpuscular HGB CONC 32.4 g/dL (32.0-36.0); Mean Corpuscular Hemoglobin 28.4 pg (27.0-31.0); Mean Corpuscular Volume 87.7 fl (78.0-98.0); Mean Platelet Volume 11.4 fL (7.4-10.4); Platelet Count 222 10x3/uL (130-400); RBC Distribution Width 12.6 % (11.5-14.5); Red Blood Cell (RBC) Count 3.98 mill/uL (4.20-5.40); White Blood Cell (WBC) Count 7.5 10x3/uL (4.8-10.8)
[2023-09-05] MEDS ORDERED: Ondansetron PF 4 MG/2 ML Vial ONE (22:28)
[2023-09-05] MEDS ORDERED: Morphine 4 MG/ML VIAL ONE (22:28)
[2023-09-05 22:46] LABS: ALT (SGPT) 20 U/L (8-55); AST (SGOT) 21 U/L (5-34); Alkaline Phosphatase 85 U/L (40-110); Anion Gap 13 mmol/L (10-20); BUN (Urea Nitrogen) 17 mg/dL (9.8-20.1); Bilirubin, Total 0.3 mg/dL (0.2-1.2); Calc. Creatinine Clearance 0 mL/min (70-130); Calcium 8.6 mg/dL (7.8-10.44); Carbon Dioxide 26 mmol/L (23-31); Chloride 107 mmol/L (98-107); Estimated GFR 77; Glucose 145 mg/dL (83-110); Lipase 29 U/L (8-78); Magnesium 2.2 mg/dL (1.6-2.6); Potassium 3.6 mmol/L (3.5-5.1); Sodium 142 mmol/L (136-145)
[2023-09-05 22:50] LABS: Troponin I Less than 0.010 ng/mL (< 0.028)
[2023-09-05 22:57] LABS: Bilirubin Negative (Negative); Blood, Urine Negative (Negative); Glucose, Urine (Dipstick) Negative (Negative); Ketone, Urine Negative (Negative); Leukocyte Small (Negative); Nitrite Negative (Negative); Protein, Urine (Dipstick) Negative (Neg-Trace); Urobilinogen 0.2 mg/dL (Less than 2)
[2023-09-05 22:58] LABS: Clarity Clear (Clear)
[2023-09-05 23:00] LABS: Bacteria/HPF None Seen HPF (None Seen); CAUTI Indications for Culture Pelvic or flank pain; RBC/HPF 0-3 HPF (0-3); Squamous Epithelial 0-3 HPF (0-3)
[2023-09-05 23:01] LABS: Urine Culture Reflex Yes Yes
[2023-09-05 23:34] LABS: SARS-CoV-2 NAA Rapid Test Not Detected (NotDetected)
[2023-09-06] MEDS ORDERED: Cephalexin 250 MG CAP ONE (00:29)
== END 2023-09-06 00:35 | disposition home or self-care (01) ==
LOC: ERS 22:03
DX: N39.0 Urinary tract infection, site not specified (principal); R03.0 Elevated blood-pressure reading, without diagnosis of hypertension
CPT/HCPCS: 0240U; 71045; 74177; 80053; 81001; 83605; 83690; 83735; 84484; 85025; 87086; 93005; 36415; 96361; 96374; 96375; J2270; J2405; Q9967